=== PATIENT | female | born 1955 | race Two or more races ===

== ENCOUNTER → 2020-03-06 11:06 | Outpatient (BNVA) | payer MEDICARE, MEDICAID, SELFPAY | PROVIDERS: Visit Provider Student in an Organized Health Care Education/Training Program | DX: M54.41 Lumbago with sciatica, right side (principal); M54.42 Lumbago with sciatica, left side; G89.29 Other chronic pain; Z79.891 Long term (current) use of opiate analgesic; Z79.899 Other long term (current) drug therapy | CPT/HCPCS: 99212 ==

== ENCOUNTER 2020-05-23 10:04 | Outpatient (REF) | payer MEDICARE, MEDICAID, SELFPAY ==
--- NOTE | ~2020-05-23 | MM_ITS ---
EXAMINATION: MM SCREENING DIGITAL BREAST TOMOSYNTHESIS, BILATERAL CLINICAL INFORMATION: Screening. Asymptomatic. The lifetime risk of breast cancer based on the Tyrer-Cuzick Model is 5%. COMPARISON: Mammography: 06/28/2018, 04/19/2017, 04/06/2017, 03/09/2016 TECHNIQUE: Digital breast tomosynthesis is performed in both the craniocaudal and mediolateral oblique views along with computer-aided detection (CAD). Synthesized 2D images are generated from the tomosynthesis. FINDINGS: There are scattered areas of fibroglandular density (ACR BI-RADS breast composition Category b). Parenchymal pattern is similar to prior studies. There is stable nodular asymmetric density anterior medial left breast limited to the CC view, similar to prior exams. Neither breast shows developing density or interval mass or architectural abnormality. Again, there are scattered bilateral round and rim and vascular calcifications. The axilla and skin contours are unremarkable. MM/MM tomosynthesis screening BI IMPRESSION: No significant changes from prior studies. ASSESSMENT: BI-RADS 2: Benign RECOMMENDATION: Routine annual mammography screening. This patient's information was entered into a reminder system with a target due date for their next mammogram.
== END 2020-05-23 10:05 | disposition home or self-care (01) ==
LOC: HO.MAMMO 10:04
PROVIDERS: PCP Internal Medicine Geriatric Medicine; Visit Provider Internal Medicine Geriatric Medicine
DX: Z12.31 Encounter for screening mammogram for malignant neoplasm of breast (principal)
CPT/HCPCS: 77063; 77067

== ENCOUNTER → 2021-03-03 12:21 | Outpatient (BNVA) | payer MEDICARE, MEDICAID, SELFPAY | PROVIDERS: PCP Internal Medicine Geriatric Medicine; Visit Provider Nurse Practitioner Family | DX: M54.42 Lumbago with sciatica, left side (principal); M54.41 Lumbago with sciatica, right side; M54.2 Cervicalgia; G89.29 Other chronic pain; R20.0 Anesthesia of skin | CPT/HCPCS: 99212 ==

== ENCOUNTER 2021-06-04 08:42 | Outpatient (REF) | payer MEDICARE, MEDICAID, SELFPAY ==
--- NOTE | 2021-06-04 08:46 | EMG_ITS ---
This is a 66-year-old woman with pain in the left shoulder going into the left hand. She has a long history of diabetes and peripheral vascular disease, had right lower extremity amputation. IMPRESSION: Neuropathy, rule out cervical radiculopathy. 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 EMG of the left upper extremity shows mild distal neuropathic changes. No definite evidence of cervical radiculopathy. MD CONI Powell/MERCEDEZ / [id number]
== END 2021-06-04 08:43 | disposition home or self-care (01) ==
LOC: HO.NEURO 08:42
PROVIDERS: PCP Internal Medicine Geriatric Medicine; Visit Provider Nurse Practitioner Family
DX: R20.0 Anesthesia of skin (principal)
CPT/HCPCS: 95885; 95910

== ENCOUNTER → 2021-10-31 09:59 | Outpatient (BNVA) | payer MEDICARE, MEDICAID, SELFPAY | PROVIDERS: PCP Internal Medicine Geriatric Medicine; Visit Provider Nurse Practitioner Family | DX: Z79.899 Other long term (current) drug therapy (principal); M54.42 Lumbago with sciatica, left side; M54.41 Lumbago with sciatica, right side; G89.29 Other chronic pain; M54.2 Cervicalgia; R20.0 Anesthesia of skin | CPT/HCPCS: Q3014 ==

== ENCOUNTER 2022-06-10 09:17 | Outpatient (REF) | payer OTHER, SELFPAY ==
[2022-06-10 09:28] LABS: MANUAL DIFF FLAG NO
[2022-06-10 09:43] LABS: Basophils Percent Auto 0.6 % (0-2); Eosinophils Absolute Auto 0.3 X10*3/uL (0.0-0.4); Eosinophils Percent Auto 4.6 % (0-4); Hematocrit 44.2 % (37.0-47.0); Imm Gran Abs Auto 0.01 X10*3/uL (0.00-0.03); Imm Gran Pct Auto 0.2 % (0.0-0.4); Lymphocytes Absolute Auto 2.2 X10*3/uL (1.2-4.9); Lymphocytes Percent Auto 34.2 % (20-40); Mean Corpuscular HGB Conc 31.7 g/dl (31.0-35.0); Mean Corpuscular Hemoglobin 29.4 pg (27.0-33.0); Mean Corpuscular Volume 92.9 fL (80.0-98.0); Mean Platelet Volume 11.1 fL (9.4-12.3); Monocytes Absolute Auto 0.5 X10*3/uL (0.1-1.2); Monocytes Percent Auto 8.3 % (2-11); Neutrophils Absolute Auto 3.4 x10*3/uL (2.0-8.3); Neutrophils Percent Auto 52.1 % (45-73); Platelet Count 221 X10*3/uL (160-400); Red Blood Count 4.76 X10*6/uL (4.20-5.50); Red Cell Distribution Width 12.8 % (11.0-16.0); White Blood Count 6.5 X10*3/uL (4.8-10.8)
[2022-06-10 10:05] LABS: Alanine Aminotransferase 56 U/L (0-31); Aspartate Amino Transferase 39 U/L (5-31); Estimated Glomerular Filt Rate 38
== END 2022-06-10 09:18 | disposition home or self-care (01) ==
LOC: HO.LAB 09:17
PROVIDERS: PCP Internal Medicine Geriatric Medicine; Visit Provider Nurse Practitioner Family
DX: Z79.899 Other long term (current) drug therapy (principal)
CPT/HCPCS: 36415; 82565; 84450; 84460; 85025

== ENCOUNTER → 2022-06-11 09:47 | Outpatient (BNVA) | payer OTHER, SELFPAY | PROVIDERS: PCP Internal Medicine Geriatric Medicine; Visit Provider Nurse Practitioner Family | DX: M54.42 Lumbago with sciatica, left side (principal); M54.41 Lumbago with sciatica, right side; M47.812 Spondylosis without myelopathy or radiculopathy, cervical region; R20.0 Anesthesia of skin; G89.29 Other chronic pain | CPT/HCPCS: 99212 ==

== ENCOUNTER 2022-12-15 09:13 | Outpatient (AMB) | payer OTHER, SELFPAY ==
--- NOTE | 2022-12-15 09:18 | MHC.OFFVIS ---
Intake Vital Signs 12/15/22 09:28 Height 5 ft 1 in Weight 137 lb BMI 25.9 BMI Reason not done Patient refused/unable BP 146/72 H Blood Pressure Location Lt brachial Position Sitting Pulse 94 Pulse Source Pulse Oximeter Temp 97.3 F Temp Source Skin Pulse Oximetry (%) 96 Oxygen Delivery Method Room Air Comment refusing to stand on scale, per pt weight measured yesterday Intake Visit Reasons: osteoarthritis Intake Note: Here for OA follow up Interventional Radiology Tech Required: Yes Interventional Radiology Tech Language: Inspector Plumbing Name: Alex Information Interpreted: clinical only Accompanied by: Other Relationship Allergies Penicillins [PCN] Allergy (Severe, Verified 12/15/22 09:18) ANGIOEDEMA levofloxacin Allergy (Intermediate, Verified 12/15/22 09:18) Rash Medication List - Last Reconciled 12/15/22 by Andrew Guido MD acetaminophen ER (Tylenol Arthritis Pain) 650 mg PO Q12H aspirin 81 mg PO DAILY atenolol 100 mg PO BID calcifediol ER (Rayaldee) 30 mcg PO DAILY clonazepam 0.25 mg PO BEDTIME docusate sodium (Colace) 100 mg PO DAILY dulaglutide (Trulicity) mg subcut QWEEK ezetimibe (Zetia) 10 mg PO DAILY fluoxetine 20 mg PO DAILY gabapentin 600 mg PO TID insulin degludec (Tresiba FlexTouch U-100 insulin) 20 units subcut DAILY lisinopril 40 mg PO DAILY olanzapine 5 mg PO DAILY omeprazole 20 mg PO DAILY pioglitazone 45 mg PO DAILY quetiapine 25 - 50 mg PO BEDTIME PRN rosuvastatin 40 mg PO DAILY tramadol 50 mg PO BID PRN trazodone 100 mg PO DAILY HPI HPI Comments History of Present Illness Details The patient presents today with her INSPECTOR EXPERIMENTAL ASSEMBLY who helps translate. The patient has been treated here for osteoarthritis in the lumbar and cervical spine regions. She takes acetaminophen, gabapentin 600 t.i.d., tramadol 50 b.i.d., and trazodone at night. For anxiety and depression she is also on fluoxetine, clonazepam, and olanzapine. She denies any sedation with these medications. She thinks the tramadol is helpful. She recently had a fall and injured the stump of the right lower extremity. The aide says there was a scratch there but they are watching it and treating it with topical agents. She did see diabetic doctor when she had the original injury. She also gets pain in her hands, shoulders, and lateral hips. [facility] Medical History (Updated 12/15/22 @ 09:56 by Andrew Guido MD) Amputation of right lower extremity Anxiety Chronic peripheral neuropathic pain Depression Diabetes HTN (hypertension) Surgical History H/O: hysterectomy Family History Father Diabetes HTN (hypertension) Mother Diabetes HTN (hypertension) Brother Mouth cancer Sister Stomach cancer Social History Alcohol intake: never Patient Tobacco Use Status: Never used Tobacco Review of Systems Const Details: Weight and appetite tend to fluctuate. Negative for, fever, chills, malaise and fatigue Eyes Details: Occasional headache. Negative for vision change, dry eyes and dizziness Skin/Breast Details: Negative for itching, rash, hives, Raynaud's symptoms, sun sensitivity, and skin cancer Psych Details: Anxiety and depression stable with current medications Endo Details: Negative for polyuria and polydypsia Florin/Lymph Details: Negative for excessive bruising or bleeding. Physical Exam Vital Signs: Last Vital Signs Temp 97.3 F 12/15/22 09:28 Pulse 94 12/15/22 09:28 BP 146/72 H 12/15/22 09:28 Pulse Ox 96 12/15/22 09:28 Oxygen Delivery Method Room Air 12/15/22 09:28 BMI result Body Mass Index 25.9 APPEARANCE: Patient in no acute distress EYES no redness, pupils equal and reactive to light, eyelids normal. No temporal artery tenderness, redness or swelling NECK: No thyromegaly or masses, no adenopathy, trachea midline. HEART: Regulrar rhythm, S1-S2 heard, no murmurs, rubs or gallops. LUNG: Clear to percussion and auscultation ABD: Normal bowel sounds, no organomegaly, masses or tenderness. EXTREMITIES: Right BKA not examined. Left: No edema, no calf tenderness, normal peripheral pulses. JOINT EXAM: Cervical Spine:? Able to perform flexion and extension with slight pain.? Mild pain with more than 45 degrees of left or right rotation.? Tenderness to palpation of the cervical spinal muscles.? Slight tenderness to palpation over the cervical spine. Thoracic Spine:? No scoliosis.? No tenderness on palpation. Lumbar Spine: Alignment normal.? Full range of motion without pain, no tenderness. Chest Wall: No tenderness, swelling, increased warmth or erythema. Hands:? Normal pain-free range of motion with mild bony enlargement and tenderness at the thumb IP joints and the PIP joints, more prominently noted on the right hand. The MCPs have no swelling. There is no flexor tendon triggering or swelling. No thenar atrophy or sensory loss. Wrists: Normal pain-free range of motion without tenderness, swelling, increased warmth or erythema. Elbows: Normal pain-free range of motion without tenderness, swelling, increased warmth or erythema. Shoulders:?? Full range of motion with mild pain at the extremes. This is noted mostly over the cervical spine region and the trapezius muscles. There is mild anterior and trapezial muscle tenderness. No swelling, weakness increased warmth or erythema. Hips:? Full range of motion without pain. Hip bursa:? No tenderness. Knees: LEFT:? Normal pain-free range of motion without tenderness, swelling, increased warmth or erythema.? There is no effusion or crepitation. Right: The stump is in the protective stock. Skin was not examined. ?? ? Assessment & Plan Assessment & Plan (1) Encounter for medication monitoring: Comment: Tramadol pain contract updated 06/11/2022 Code(s): Z51.81 - Encounter for therapeutic drug level monitoring (2) Amputation of right lower extremity: Code(s): S88.911A - Complete traumatic amputation of right lower leg, level unspecified, initial encounter (3) Spondylosis of cervical spine: Code(s): M47.812 - Spondylosis without myelopathy or radiculopathy, cervical region Plan Patient continues with pains in the neck and lower back region. She seems also have some many tender points consistent with some underlying fibromyalgia. Apparently the current medications are helpful but not sedating so I think that could be continued. Tramadol dose is relatively low and I think might be manageable by her PCP if he decides to take that over that would be fine with us. Otherwise we would see her back in about 6 months. A new prescription for the tramadol refill was sent in. Medications: Refilled tramadol 50 mg PO BID PRN 60 tabs 5RF pain M47.812 - Spondylosis without myelopathy or radiculopathy, cervical region, S88.911A - Complete traumatic amputation of right lower leg, level unspecified, initial encounter Coding Level of Care Code Est Pt Level 3 (40413) Diagnoses Encounter for medication monitoring Z51.81 Amputation of right lower extremity S88.911A Spondylosis of cervical spine M47.812
[2022-12-15 09:28] VITALS: BP 146/72; PULSE 94; TEMP 36.3; O2SAT 96; BMI 25.9
== END 2022-12-15 10:08 | disposition home or self-care (01) ==
PROVIDERS: PCP Internal Medicine Geriatric Medicine; Visit Provider Internal Medicine Rheumatology
DX: Z51.81 Encounter for therapeutic drug level monitoring (principal); S88.911A Complete traumatic amputation of right lower leg, level unspecified, initial encounter; M47.812 Spondylosis without myelopathy or radiculopathy, cervical region
CPT/HCPCS: 99213

== ENCOUNTER → 2022-12-15 09:13 | Outpatient (BNVA) | payer OTHER, SELFPAY | PROVIDERS: PCP Internal Medicine Geriatric Medicine; Visit Provider Internal Medicine Rheumatology | DX: M47.812 Spondylosis without myelopathy or radiculopathy, cervical region (principal); S88.911A Complete traumatic amputation of right lower leg, level unspecified, initial encounter | CPT/HCPCS: 99212 ==

== ENCOUNTER 2023-01-15 12:40 | Outpatient (REF) | payer OTHER, SELFPAY | END 2023-01-15 12:41 | disposition home or self-care (01) | LOC: HO.MAMMO 12:40 | PROVIDERS: PCP Internal Medicine Geriatric Medicine; Visit Provider Internal Medicine Geriatric Medicine | DX: Z13.89 Encounter for screening for other disorder (principal) ==

== ENCOUNTER 2023-02-16 09:58 | Outpatient (REF) | payer OTHER, SELFPAY | END 2023-02-16 09:59 | disposition home or self-care (01) | LOC: HO.MAMMO 09:58 | PROVIDERS: PCP Internal Medicine Geriatric Medicine; Visit Provider Internal Medicine Geriatric Medicine | DX: Z12.31 Encounter for screening mammogram for malignant neoplasm of breast (principal) | CPT/HCPCS: 77063; 77067 ==

== ENCOUNTER → 2023-02-16 11:45 | Outpatient (BNV) | payer OTHER, SELFPAY | PROVIDERS: PCP Internal Medicine Geriatric Medicine; Visit Provider Radiology Diagnostic Radiology | DX: Z12.31 Encounter for screening mammogram for malignant neoplasm of breast (principal) | CPT/HCPCS: 77063; 77067 ==

== ENCOUNTER 2023-06-14 12:45 | Outpatient (AMB) | payer OTHER, SELFPAY ==
--- NOTE | 2023-06-14 12:48 | A.OFFVIS_ITS ---
Intake Vital Signs 06/14/23 12:59 Height 5 ft 1 in Weight 139 lb 15.896 oz BMI 26.4 BP 128/62 Blood Pressure Location Rt brachial Position Sitting Pulse 103 H Pulse Source Pulse Oximeter Pulse Oximetry (%) 98 Oxygen Delivery Method Room Air Intake Visit Reasons: June 2023-oa/tramadol with eyeglass lens cutter Intake Note: Patient last seen 12/15/[address] Guido, presents today for follow up. Reports left leg sore. Concrete Precast Moulder Required: Yes Concrete Precast Moulder Language: Asthma Educator Name: Kye [id number] Information Interpreted: clinical only Accompanied by: Self / Same As Patient Allergies Penicillins [PCN] Allergy (Severe, Verified 06/14/23 12:49) ANGIOEDEMA levofloxacin Allergy (Intermediate, Verified 06/14/23 12:49) Rash HPI HPI Comments History of Present Illness Details The patient presents today for follow-up of osteoarthritis in the lumbar and cervical spine regions. She takes acetaminophen, gabapentin 600 t.i.d., tramadol 50 b.i.d., and trazodone at night. For anxiety and depression she is also on fluoxetine, clonazepam, and olanzapine. She denies any sedation with these medications. She thinks the tramadol is helpful. She also gets pain in her hands, shoulders, and lateral hips. She is consulting with vascular due lower extremity swelling. She says that at last visit, she was told that since the PCP prescribes her tramadol and gabapentin, she did not need to comer here so she is not sure why she was called to come in for an appointment. [facility] Medical History (Updated 12/15/22 @ 09:56 by Andrew Guido MD) Chronic peripheral neuropathic pain Amputation of right lower extremity Anxiety Depression HTN (hypertension) Diabetes Surgical History H/O: hysterectomy Family History Father Diabetes HTN (hypertension) Mother Diabetes HTN (hypertension) Brother Mouth cancer Sister Stomach cancer Social History Alcohol intake: never Patient Tobacco Use Status: Never used Tobacco Review of Systems Const All systems reviewed & are unremarkable except as noted in HPI and below Physical Exam Vital Signs: Last Vital Signs Pulse 103 H 06/14/23 12:59 BP 128/62 06/14/23 12:59 Pulse Ox 98 06/14/23 12:59 Oxygen Delivery Method Room Air 06/14/23 12:59 BMI result Body Mass Index 26.4 APPEARANCE: Patient in no acute distress EYES no redness, pupils equal and reactive to light, eyelids normal. No temporal artery tenderness, redness or swelling NECK: No thyromegaly or masses, no adenopathy, trachea midline. HEART: Regular rhythm, S1-S2 heard, no murmurs, rubs or gallops. LUNG: Clear to percussion and auscultation ABD: Normal bowel sounds, no organomegaly, masses or tenderness. EXTREMITIES: Right BKA not examined. Left: No edema, no calf tenderness, normal peripheral pulses. JOINT EXAM: Cervical Spine:? Able to perform flexion and extension with slight pain.? Mild pain with more than 45 degrees of left or right rotation.? Tenderness to pal pation of the cervical spinal muscles.? Slight tenderness to palpation over the cervical spine. Thoracic Spine:? No scoliosis.? No tenderness on palpation. Lumbar Spine: Alignment normal.? Full range of motion without pain, no tenderness. Chest Wall: No tenderness, swelling, increased warmth or erythema. Hands:? Normal pain-free range of motion with mild bony enlargement and tenderness at the thumb IP joints and the PIP joints, more prominently noted on the right hand. The MCPs have no swelling. There is no flexor tendon triggering or swelling. No thenar atrophy or sensory loss. Wrists: Normal pain-free range of motion without tenderness, swelling, increased warmth or erythema. Elbows: Normal pain-free range of motion without tenderness, swelling, increased warmth or erythema. Shoulders:?? Full range of motion with mild pain at the extremes. This is noted mostly over the cervical spine region and the trapezius muscles. There is mild anterior and trapezial muscle tenderness. No swelling, weakness increased warmth or erythema. Hips:? Full range of motion without pain. Hip bursa:? No tenderness. Knees: LEFT:? Normal pain-free range of motion without tenderness, swelling, increased warmth or erythema.? There is no effusion or crepitation. Right: The stump is in the protective stock. Skin was not examined. ?? ? Assessment & Plan Assessment & Plan (1) Encounter for medication monitoring: Comment: Tramadol pain contract updated 06/11/2022 Code(s): Z51.81 - Encounter for therapeutic drug level monitoring (2) Amputation of right lower extremity: Code(s): S88.911A - Complete traumatic amputation of right lower leg, level unspecified, initial encounter (3) Spondylosis of cervical spine: Code(s): M47.812 - Spondylosis without myelopathy or radiculopathy, cervical region Plan Patient continues with pains in the neck and lower back region. She seems also have some many tender points consistent with some underlying fibromyalgia. Apparently the current medications are helpful but not sedating so I think that could be continued. She will continue to follow up with PCP for the Tramadol and Gabapentin. Coding Level of Care Code Est Pt Level 2 (35750) Diagnoses Encounter for medication monitoring Z51.81 Amputation of right lower extremity S88.911A Spondylosis of cervical spine M47.812
[2023-06-14 12:59] VITALS: BP 128/62; PULSE 103; O2SAT 98; BMI 26.4
== END 2023-06-14 13:21 | disposition home or self-care (01) ==
PROVIDERS: PCP Internal Medicine Geriatric Medicine; Visit Provider Nurse Practitioner Family
DX: Z51.81 Encounter for therapeutic drug level monitoring (principal); S88.911A Complete traumatic amputation of right lower leg, level unspecified, initial encounter; M47.812 Spondylosis without myelopathy or radiculopathy, cervical region
CPT/HCPCS: 99212

== ENCOUNTER → 2023-06-14 12:45 | Outpatient (BNVA) | payer OTHER, SELFPAY | PROVIDERS: PCP Internal Medicine Geriatric Medicine; Visit Provider Nurse Practitioner Family | DX: Z51.81 Encounter for therapeutic drug level monitoring (principal); F11.20 Opioid dependence, uncomplicated; M47.812 Spondylosis without myelopathy or radiculopathy, cervical region; S88.911D Complete traumatic amputation of right lower leg, level unspecified, subsequent encounter | CPT/HCPCS: 99212 ==

== ENCOUNTER 2024-02-24 08:53 | Outpatient (REF) | payer OTHER, SELFPAY ==
--- NOTE | ~2024-02-24 | MM_ITS ---
EXAMINATION: MM SCREENING DIGITAL BREAST TOMOSYNTHESIS, BILATERAL CLINICAL INFORMATION: Screening. Asymptomatic. COMPARISON: Mammography: Comparison is made with available priors TECHNIQUE: Digital breast mammography with tomosynthesis is performed in both the craniocaudal and mediolateral oblique views along with computer-aided detection (CAD). FINDINGS: The breasts are heterogeneously dense, which may obscure small masses (ACR BI-RADS breast composition Category c). There are no significant masses, abnormal calcifications, or other abnormalities. MM/MM tomosynthesis screening BI IMPRESSION: No mammographic evidence of malignancy. ASSESSMENT: BI-RADS BI-RADS 1 - Negative RECOMMENDATION: Routine annual mammography screening. 1 year F/U This examination should not preclude the clinical evaluation of a suspicious palpable abnormality. This patient's information was entered into a reminder system with a target due date for their next mammogram. Electronically signed by: Lesly Felix DO 03/03/2024 09:14 AM DANIEL
== END 2024-02-24 08:54 | disposition home or self-care (01) ==
LOC: HO.MAMMO 08:53
PROVIDERS: PCP Internal Medicine Geriatric Medicine; Visit Provider Internal Medicine Geriatric Medicine
DX: Z12.31 Encounter for screening mammogram for malignant neoplasm of breast (principal)
CPT/HCPCS: 77063; 77067

== ENCOUNTER → 2024-02-24 09:00 | Outpatient (BNV) | payer OTHER, SELFPAY | PROVIDERS: PCP Internal Medicine Geriatric Medicine; Visit Provider Internal Medicine | DX: Z12.31 Encounter for screening mammogram for malignant neoplasm of breast (principal) | CPT/HCPCS: 77063; 77067 ==

== ENCOUNTER 2025-04-10 13:53 | Outpatient (REF) | payer OTHER, SELFPAY ==
--- NOTE | ~2025-04-10 | MM_ITS ---
EXAMINATION: MM SCREENING DIGITAL BREAST TOMOSYNTHESIS, BILATERAL CLINICAL INFORMATION: Screening. Asymptomatic. COMPARISON: Mammography: Comparison is made with available priors TECHNIQUE: Digital breast mammography with tomosynthesis is performed in both the craniocaudal and mediolateral oblique views along with computer-aided detection (CAD). FINDINGS: The breasts are heterogeneously dense, which may obscure small masses. There are no significant masses, abnormal calcifications, or other abnormalities. MM/MM tomosynthesis screening BI IMPRESSION: No mammographic evidence of malignancy. ASSESSMENT: BI-RADS Category 1: Negative RECOMMENDATION: Routine annual mammography screening. 1 year F/U This examination should not preclude the clinical evaluation of a suspicious palpable abnormality. This patient's information was entered into a reminder system with a target due date for their next mammogram. Electronically signed by: Lesly Felix DO 04/10/2025 04:38 PM [facility]
--- OUTSIDE RECORDS SUMMARY | 2025-04-10 17:41 | XMS_ITS | Encounter Summary ---
Author Organization [employer] Address [address] [place] [address] Care Team Providers Care Litigation Attorney Name Role Phone Name, Christopher CARRASCO Primary Care Provider [phone] Encounter Details Date Type Department Care Team (Late st Contact Info) Description 03/08/2023 Abstract [facility] MEDICINE [address] [place], [place] [phone] Name, MD Christopher [address] [place], [place] [phone] Social History Tobacco Use Types Packs/Day Years Used Date Smoking Tobacco: Never Smokeless Tobacco: Never Alcohol Use Standard Drinks/Week Comments Never 0 (1 standard drink = 0.6 oz pur e alcohol) Housing Stability Answer Date Recorded What is your housing situation today? I have deb cardona 01/27/[address] you li ve. Do you have problems with any of the following? None of the above 01/27/2023 Food Insecurity Answer Date Recorded Within the past 12 months, y ou worried that your food would run out before you got money to buy more: Never True 01/27/2023 Within the past 12 months,th e food you bought just didn't last and you didn't have enough money to get more: Never True Transportation Answer Date Recorded In the past 12 months, has l ack of transportation kept you from medical appts, meetings, work or from getting things needed for daily living? No 01/27/2023 Utilities Answer Date Recorded In the past 12 months, has t he electric, gas, oil or water company threatened to shut off services in your home? No 01/27/2023 Depression Answer Date Recorded Patient Health Questionnaire-2 Score 0 06/08/2022 Comments Unknown Sex and Gender Information Value Date Recorded Sex Assigned at Female 02/09/2022 10:27 AM EDT Legal Sex Female 10:27 AM EDT Gender Identity Female 02/09/2022 10:27 AM EDT Sexual Orientation Straight 02/09/2022 10 :27 AM EDT documented as of this encounter Plan of Treatment Upcoming Encounters Date Type Department Care Team (Late st Contact Info) Description 2025 11:00 AM EST Office Visit [facility] [address] [place] [address] Name, MD Christopher [address] [place] [address] documented as of this encounter Procedures Procedure Name Priority Date/Time Associated Diagnosis Comments MAMMOGRAPHY Routine 02/16/2023 documented in this encounter Results * Mammography (02/16/2023) Mammogram Negative Comment:Bi-Rads 1 Negative Anatomical Region Laterality Modality Other Christopher Theodore MD HEALTH MAINTENANCE Final Result documented in this encounter Visit Diagnoses Not on filedocumented in this encounter Care Teams Litigation Attorney Relationship Specialty Start Date End Date Name, MD Christopher [address] [place] [address] PCP - General Family Medicine 11/20/16 documented as of this encounter
--- OUTSIDE RECORDS SUMMARY | 2025-04-10 17:41 | XMS_ITS | Encounter Summary ---
Author Organization [employer] Address [address] [place] [address] Care Team Providers Care Belt Operator Name Role Phone NameChristopher MD Primary Care Provider [phone] Encounter Details Date Type Department Care Team (Late Contact Info) Description 11/11/2022 Orders Only [facility] MEDICINE [address] [place] [phone] Christopher Theodore MD [address] [place] [address] [phone] Social History Tobacco Use Types Packs/Day Years Used Date Smoking Tobacco: Never Smokeless Tobacco: Never Alcohol Use Standard Drinks/Week Comments Never 0 (1 standard drink = 0.6 oz pur e alcohol) Depression Answer Date Recorded Patient Health Questionnaire-2 [...] 11:00 AM EST Office Visit [facility] MED[facility]INE [address] [place] [address] [phone] Christopher Theodore MD [address] [place] [address] [phone] documented as of this encounter Visit Diagnoses Not on filedocumented in this encounter Care Teams Belt Operator Relationship Specialty Start Date End Date NameChristopher MD [address] [place] [address] PCP - General Family Medicine 11/20/16 documented as of this encounter
--- OUTSIDE RECORDS SUMMARY | 2025-04-10 17:41 | XMS_ITS | Clinical Summary ---
Author Organization [facility] Address [address] [address] Phone Care Team Providers [employer] Name Role Phone Priscila Moraes MD Primary Care Provider [phone] Allergies Active Allergy Reactions Criticality Noted Date Comments Amoxicillin 06/25/2020 Levofloxacin Other (see comments) 02/07/2019 Penicillins Rash Low 09/22/2018 Medications aspirin (ST CHRISTIANO) 81 MG EC tablet Take 1 tablet by mouth 1 (one) time each day Active atenolol (TENORMIN) 100 MG tablet Comments: Filled Date: Mar 14 2018 12:00AM Patient Notes: TOME DOS TABLETAS POR V?A ORAL TODOS LOS D? Duration: 90 03/11/2018 Active Calcifediol ER (Rayaldee) 30 MCG capsule controlled-rele ase Comments: Filled Date: Nov 10 2019 5:09PM Patient Notes: TAKE 1 APPLY BY MOUTH ONCE DAILY Duration: 11/10/2019 Active ezetimibe (ZETIA) 10 MG tablet Take 1 tablet by mouth 1 (one) time each day Active gabapentin (NEURONTIN) 600 MG tablet Take 1 tablet by mouth 3 (three) times a day Active insulin degludec (Tresiba FlexTouch) 100 UNIT/ML injection Inject 30 Units under the skin every night Active insulin lispro (HumaLOG) 100 UNIT/ML injection Inject 5 Units under the skin 3 (three) times a day 11/07/2019 Active omeprazole (PriLOSEC) [address] capsule Take 1 capsule by mouth 1 (one) time each day Active pioglitazone (ACTOS) 45 MG tablet Take 1 tablet by mouth 1 (one) time each day Active rosuvastatin (CRESTOR) 40 MG tablet Take 1 tablet by mouth 1 (one) time each day Active traMADol (ULTRAM) 50 MG tablet Take 1 tablet by mouth 4 (four) times a day Active FLUoxetine (PROzac) 20 MG capsule Comments: Filled Date: Mar 18 2018 12:00AM Patient Notes: TOME HOMERO C?PSULAS POR V?A ORAL TODOS LOS D? EN LA MA?LISSETH Duration: 30 01/25/2018 Active FREESTYLE LITE test strip 12/30/2020 Active B-D ULTRAFINE III SHORT PEN 31G X 8 MM misc 01/31/2021 Act aubrey Lancets (freestyle) lancets 03/02/2021 Active traZODone (DESYREL) 50 MG tablet 03/10/2021 Active Trulicity 1.5 MG/0.5ML solution pen-injector 02/11/2021 Active Fe Heme Polypeptide-Fol ic Acid 12-1 MG tablet Take 1 tablet by mouth 1 (one) time each day 90 tablet 5 02/10/2022 Active lisinopril 40 MG tablet Take 1 tablet (40 mg total) by mouth 1 (one) time each day 90 tablet 5 08/12/2022 Active amLODIPine (NORVASC) 10 MG tablet Take 10 mg by mouth 1 (one) time each day Active Active Problems Problem Noted Date Diagnosed Date Chronic kidney disease, stage 2 (mild) Amputated below knee 06/25/2020 Chronic kidney disease stage 3 06/25/2020 Edema 06/25/2020 Hypertensive heart and renal disease with (congestive) heart failure 06/25/2020 Hypertensive heart disease without heart failure 06/25/2020 Iron deficiency anemia 06/25/2020 Peripheral vascular disease 06/25/2020 Renal disorder due to type 2 diabetes mellitus 0 06/25/2020 Hypercalcemia 02/07/2020 Overview (06/25/2020): Last Assessment & Plan: We will repeat comprehensive and intact PTH levels 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 I will check 1, 25 dihydroxy vitamin D but again she has been supplementing this medication. Secondary hyperparathyroidism 11/02/2019 Overview (06/25/2020): Last Assessment & Plan: She is following with the emt/paramedic serum calcium levels have been elevated but her intact PTH level improved. She is off cholecalciferol but continues on calcifediol. Vitamin D deficiency 11/02/2019 Overview (06/25/2020): Last Assessment & Plan: MND levels are now replete stop ergocalciferol. Will prescribe cholecalciferol 2000 units but the patient is on active vitamin D so it may not make much of a difference. Traumatic transtibiofibular amputation 0 Essential hypertension 09/22/2018 Overview (06/25/2020): Last Assessment & Plan: Controlled on lisinopril. No changes. Hyperlipidemia 09/22/2018 Overview (06/25/2020): Last Assessment & Plan: Controlled, LDL 44 mg/dL on Crestor and ezetimibe no changes. Type 2 diabetes mellitus 09/22/2018 Overview (06/25/2020): Last Assessment & Plan: Uncontrolled she still having too many hypoglycemic episodes. She resume Humalog after she told me she has stopped. She states that she is going to stop but does not want to come off pioglitazone. Makes no sense to me because mom explaining to her that she is having low glucose levels so she should stop some of these medications and she is not eating as much. I told her to stop the Humalog and if she continues to have lows she should stop the pioglitazone as well. She should continue Tresiba U1 100 and Trulicity for the time being and she is going to continue pioglitazone 15 mg but again if she continues to have lows after stopping the Humalog she should stop the pioglitazone. Hypertension 09/22/2018 Overview (09/23/2020): Last Assessment & Plan: Controlled. Continue current medications we will check urine microalbumin creatinine ratio. Hyperlipidemia 09/22/2018 Overview (09/23/2020): Last Assessment & Plan: Controlled. LDL 47 mg/dL continue rosuvastatin and ezetimibe. No changes. Type 2 diabetes mellitus 09/22/2018 Overview (09/23/2020): Last Assessment & Plan: Unfortunately she continues to have hypoglycemia. She stopped pioglitazone and still has hypoglycemia I asked her to stop Tresiba she is only taking 5 units but the fact that she still having hypoglycemia she should discontinue it. She does not want meter completely discontinue this medication for her medication list but I advised her to please not use it because she had a glucose level 33 mg/dL and I told her that this is from hypoglycemia dangerous she can have seizure and this could be fatal. She should continue Trulicity 1.5 mg weekly. We will give her a follow-up appointment in 4 months. Encounters Date Type Department Care Team Description 02/07/2025 1:45 PM EDT Office Visit [facility] [address] [phone] Dulce Hinkle ARNP Chronic kidney disease, stage 2 (mild) (Primary Dx); Hypertension; Secondary hyperparathyroidism (HCC); Vitamin D deficiency, not otherwise specified 01/10/2025 Orders Only [facility] [address] [phone] Dulce Hinkle ARNP Chronic kidney disease, stage 2 (mild); Hypertension; Secondary hyperparathyroidism (HCC) from Last 3 Months Immunizations Immunization Administration Dates Next Due H1N1 Inj 02/20/2016 Influenza Split High Dose Preservative Free IM 0 12/11/2014 Pneumococcal Polysaccharide 1974 Family History Medical History Relation Comments Diabetes Father Diabetes Mother Heart disease Sibling 1 sister Kidney disease Sibling 2 CKD Relation Status Comments Father Mother Sibling 1 Sibling 2 Social History Tobacco Use Types Packs/Day Years Used Date Smoking Tobacco: Never Smokeless Tobacco: Never Tobacco Cessation:Counseling Given: Not Answered Alcohol Use Standard Drinks/Week Comments No 0 (1 standard drink = 0.6 oz pur e alcohol) Comments Unknown Sex and Gender Information Value Date Recorded Sex Assigned at Not on file Legal Sex Female 4:41 PM EST Gender Identity Not on file Sexual Orientation Not on file Last Filed Vital Signs Vital Sign Reading Time Taken Comments Blood Pressure 160/80 02/07/2025 1:41 PM EDT Pulse 93 02/07/2025 1:21 PM EDT Temperature - - Respiratory Rate - - Oxygen Saturation 97% 08/09/2024 3:39 PM EDT Inhaled Oxygen Concentration - - Weight 60.8 kg (134 lb) 02/07/2025 1:21 PM EDT Height 157.5 cm (5' 2 ) 02/10/2022 2:57 PM EDT Body Mass Index 24.51 02/10/2022 2:57 PM EDT Plan of Treatment Upcoming Encounters Date Type Department Care Team (Late st Contact Info) Description 08/15/2025 1:30 PM EDT Office Visit [facility] [address] [phone] Dulce Hinkle ARNP [address] [phone] Health Maintenance Due Date Last Done Comments Breast Cancer Screening 1955 Colorectal Cancer Screening: Annual FOBT 2004 Colorectal Cancer Screening: Colonoscopy 2004 Colorectal Cancer Screening: Sigmoidoscopy 2004 Diabetes: Ophthalmology Exam 05/12/2020 Diabetes: Pedal Pulse Checked 05/12/2020 Diabetes: Sensory Foot Exam 05/12/2020 Diabetes: Visual Foot Exam 05/12/2020 Diabetes: Hemoglobin A1C 04/21/2024 024, 01/13/2024, 01/27/2023, Additional history exists Influenza Vaccine (#1) 2024 4, 01/17/2019, 01/28/2018, Additional history exists Pneumococcal Vaccine: 50+ Years (4 of 4 - PCV20 or PCV21) 07/08/2026 07/08/2021, 10/10/2015, 08/03/2014, Additional history exists Pneumococcal Vaccine: Peds (0 to 5 Years) and At-Risk Patients (6 to 49 Years) Discontinued 07/08/2021, 10/10/2015, 08/03/2014, Additional history exists Hepatitis B Vaccine Aged Out No longe r eligible based on patient's age to complete this topic Procedures Procedure Name Priority Date/Time Associated Diagnosis Comments PROTEIN / CREATININE RATIO, URINE Routine 01/31/2025 9:17 AM EDT Chronic kidney disease, stage 2 (mild) Hypertension Secondary hyperparathyroidism (HCC) URINE ALBUMIN / CREATININE RATIO Routine 01/31/2025 9:17 AM EDT Chronic kidney disease, stage 2 (mild) Hypertension Secondary hyperparathyroidism (HCC) CBC Routine 01/31/2025 9:17 AM EDT Chronic kidney disease, stage 2 (mild) Hypertension Secondary hyperparathyroidism (HCC) RENAL FUNCTION PANEL Routine 01/31/2025 9:17 AM EDT Chronic kidney disease, stage 2 (mild) Hypertension Secondary hyperparathyroidism (HCC) PTH, INTACT Routine 01/31/2025 9:17 AM EDT Chronic kidney disease, stage 2 (mild) Hypertension Secondary hyperparathyroidism (HCC) HEMOGLOBIN A1C Routine 01/27/2023 10:34 AM EDT Hypertensive heart disease with heart failure (HCC) Chronic kidney disease, stage 2 (mild) Amputated below knee <Right side> (HCC) from Last 3 Months or Most Recently Relevant to Health Maintenance Results * (ABNORMAL) Urine Protein / creatinine ratio (01/31/2025 9:17 AM EDT) Creatinine, Ur 58.0 Not Estab. mg/dL [facility] Protein, Ur 12.7 Not Estab. mg/dL [facility] Urine Protein/Creati nine Ratio 219(H) 0 - 200 mg/g creat [facility] Urine specimen (specimen) Urine specimen obtained by clean catch procedure / Unknown 01/31/2025 9:17 AM EDT 01/31/2025 [facility] LAB URINE ORDERABLES Final Result Performing Organization Address City/[facility]/ZIP Co de Phone Number [facility] [address] [place] [address] * (ABNORMAL) Urine Albumin / Creatinine Ratio (01/31/2025 9:17 AM EDT) Albumin, Urine 36.9 Not Estab. ug/mL [facility] Albumin/Creatin ine Ratio 64(H) 0 - 29 mg/g creat [facility] Comment: Normal: 0 - 29 Moderately increased: 30 - 300 Severely increased: >300 Urine specimen (specimen) Urine specimen obtained by clean catch procedure / Unknown 01/31/2025 9:17 AM EDT 01/31/2025 [facility] LAB URINE ORDERABLES Final Result Performing Organization Address City/[facility] Co de Phone Number [facility] [address] [place] [address] * (ABNORMAL) CBC (01/31/2025 9:17 AM EDT) WBC 5.3 3.4 - 10.8 x10E3/uL [facility] RBC 4.34 3.77 - 5.28 x10E6/uL [facility] Hemoglobin 14.4 11.1 - 15.9 g/dL [facility] Hematocrit 43.8 34.0 - 46.6 % [facility] MCV 101(H) 79 - 97 fL [facility] MCH 33.2(H) 26.6 - 33.0 pg [facility] MCHC 32.9 31.5 - 35.7 g/dL [facility] RDW 12.6 11.7 - 15.4 % [facility] Platelets 220 150 - 450 x10E3/uL [facility] Blood specimen (specimen) Venous blood / Unknown 01/31/2025 9:17 AM EDT 01/31/2025 [facility] LAB BLOOD ORDERABLES Final Result Performing Organization Address City/[facility]/ZIP Co de Phone Number [facility] [address] [place] [address] * (ABNORMAL) PTH, intact (01/31/2025 9:17 AM EDT) PTH 82(H) 15 - 65 pg/mL [facility] Blood specimen (specimen) Venous blood / Unknown 01/31/2025 9:17 AM EDT 01/31/2025 Dulce Hinkle [facility] LAB BLOOD ORDERABLES Final Result [facility] [address] [place] [address] * (ABNORMAL) Renal function panel (01/31/2025 9:17 AM EDT) Glucose 147(H) 70 - 99 mg/dL [facility] BUN 15 8 - 27 mg/dL [facility] Creatinine 0.99 0.57 - 1.00 mg/dL [facility] eGFR CKD-EPI CR 2020 62 >59 mL/min/1.7 3 [facility] BUN/Creatinine Ratio 15 12 - 28 [facility] Sodium 142 134 - 144 mmol/L [facility] Potassium 4.8 3.5 - 5.2 mmol/L [facility] Chloride 104 96 - 106 mmol/L [facility] Bicarbonate (CO2) 24 20 - 29 mmol/L [facility] Calcium 9.9 8.7 - 10.3 mg/dL [facility] Albumin 4.3 3.9 - 4.9 g/dL [facility] Phosphorus 3.7 3.0 - 4.3 mg/dL [facility] Blood specimen (specimen) Venous blood / Unknown 01/31/2025 9:17 AM EDT 01/31/2025 Dulce Hinkle [facility] LAB BLOOD ORDERABLES Final Result [facility] [address] [place] [phone] * (ABNORMAL) Hemoglobin A1c (01/27/2023 10:34 AM EDT) [facility] Signature Hemoglobin A1C 6.6(H) (4.0-5.6) % [facility] Comment: MONITORING: In known diabetic patients, hemoglobin A1c targets should be discussed with health care provider. DIAGNOSTIC USE: The [place] Diabetes Association (ADA) and the World Health Organization (WHO) recommend the use of HbA1c to diagnose diabetes using a threshold of 6.5%. Patients who have an HbA1c between 5.7% and 6.4% are considered at increased risk for developing diabetes in the future. CAUTION: Falsely low HbA1c results may be observed in patients with hemolytic anemia, homozygous forms of abnormal hemoglobin (e.g. SS, CC, SC), , recent blood loss or hemoglobin F greater than 7%. Fructosamine may be used as an alternate test in these cases. REFERENCE: ADA: Standards of Medical Care in Diabetes 2020, The Journal of Clinical and Applied Research and Education Volume 43, Supplement 1 Testing performed or reported by [facility], a Service of [facility], [address] [place] [id number] Yordy Matias MD, [facility]# [id number] Blood specimen (specimen) Venous blood / Unknown 01/27/2023 10:34 AM EDT 01/27/2023 10:38 AM EDT us Kendell Fair MD LAB BLOOD ORDERABLES Final Re sult [facility] from Last 3 Months or Most Recently Relevant to Health Maintenance Insurance [address] [place] [id number] [facility] MCR ([id number]) ANNA ARMENTA [id number] [place] [id number] [facility] ([id number]) ANNA ARMENTA [id number] Care Teams [employer] T[employer] Relationship Specialty Start Date End Date Priscila Moraes MD [address] [place] [id number] PCP - General 04/22/20
--- OUTSIDE RECORDS SUMMARY | 2025-04-10 17:41 | XMS_ITS | Clinical Summary ---
Author Organization [facility] Address [address] [facility] [address] [place] [id number] Phone Care Team Providers Care Lockstitch Binder Name Role Phone Name, Christopher CARRASCO Primary Care Provider [phone] Allergies Active Allergy Reactions Criticality Noted Date Comments Levofloxacin 02/07/2019 Penicillins 09/22/2018 Medications atenolol (TENORMIN) 100 MG tablet Take 200 mg by mouth daily. Active FLUoxetine (PROZAC) 20 MG capsule Take 20 mg by mouth daily. Active gabapentin (NEURONTIN) 600 MG tablet Take 600 mg by mouth 2 (two) times a day. Active omeprazole (PRILOSEC) 20 MG capsule Take 20 mg by mouth daily. Active calcifediol 30 mcg Cs24 Take 30 mcg by mouth daily. Active aspirin 81 MG EC tablet Take 81 mg by mouth daily. Active traZODone (DESYREL) 100 MG tablet TOME CYNTHIA TABLETA TODOS LOS D AL ACOSTARSE 07/11/19 22 Active lisinopril (PRINIVIL,ZESTRIL ) 40 MG tablet Take 1 tablet by mouth daily. 11/14/19 23 Active amLODIPine (NORVASC) 10 MG tablet Take 10 mg by mouth daily. 01/02/20 23 Active traMADoL (ULTRAM) 50 mg tablet Take 50 mg by mouth 2 (two) times a day as needed. 02/03/20 23 Active QUEtiapine (SEROQUEL) 25 MG tablet Take 2 tablets by mouth nightly at bedtime as needed. 02/10/20 23 Active loratadine (CLARITIN) 10 mg tablet Take 10 mg by mouth 2 (two) times a day. 05/21/19 24 Active Medication-Free TextIndications:T ype 2 diabetes mellitus with proliferative retinopathy of both eyes, with long-term current use of insulin Left custom diabetic inserts 3 each 09/20/19 24 Active BD INSULIN PEN NEEDLE UF SHORT 31 gauge x /16 NdleIndications:T ype 2 diabetes mellitus with proliferative retinopathy of both eyes, with long-term current use of insulin, macular edema presence unspecified, unspecified proliferative retinopathy type 1 each by Miscellaneous route 4 (four) times a day. 400 each 3 07/15/19 25 Active FREESTYLE LITE Strp stripsIndications :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, with long-term current use of insulin, macular edema presence unspecified, unspecified proliferative retinopathy type 1 each by Miscellaneous route 3 (three) times a day before meals. 300 strip 3 07/15/19 25 Active FREESTYLE 28 gauge lancetsIndication s: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, with long-term current use of insulin, macular edema presence unspecified, unspecified proliferative retinopathy type Inject 1 each under the skin 3 (three) times a day before meals. 300 each 3 07/15/19 25 Active HYDROmorphone (DILAUDID) 2 MG tablet Take 2 mg by mouth as needed for pain (specific location in comments). 03/28/20 24 Active mometasone (ELOCON) 0.1 % ointment Apply 1 Application topically daily. 01/23/20 25 Active rivaroxaban (XARELTO) 10 mg tablet Take 2.5 mg by mouth 2 (two) times a day. Active insulin degludec U-100 (TRESIBA FLEXTOUCH U-100) injection penIndications:Ty pe 2 diabetes mellitus with diabetic polyneuropathy, with long-term current use of insulin,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, with long-term current use of insulin, macular edema presence unspecified, unspecified proliferative retinopathy type Inject 5 Units under the skin daily. 15 mL 1 03/05/20 25 Active rosuvastatin (CRESTOR) 40 MG tabletIndications :Type 2 diabetes mellitus with diabetic polyneuropathy, with long-term current use of insulin,Hyperlipi demia LDL goal <50,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, with long-term current use of insulin, macular edema presence unspecified, unspecified proliferative retinopathy type TOME CYNTHIA TABLETA TOS SHAYAN PAGAN 90 tablet 1 03/05/20 Active ezetimibe (ZETIA) 10 mg tabletIndications :Type 2 diabetes mellitus with diabetic polyneuropathy, with long-term current use of insulin,Hyperlipi demia LDL goal <50,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, with long-term current use of insulin, macular edema presence unspecified, unspecified proliferative retinopathy type WENDY MARIE TABLETA JEMIMADOS SHAYAN PAGAN 90 tablet 1 03/05/20 25 Active dulaglutide (TRULICITY) 4.5 mg/0.5 mL subcutaneous injectionIndicati ons:Type 2 diabetes mellitus with diabetic polyneuropathy, with long-term current use of insulin,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, with long-term current use of insulin, macular edema presence unspecified, unspecified proliferative retinopathy type INYECTE 0.5 ML (4.5 MG TOTAL) UNDER THE SKIN EVERY 7 DAYS 6 mL 1 03/05/20 Active Active Problems Problem Noted Date Diagnosed Date Type 2 diabetes mellitus wit h diabetic polyneuropathy, with long-term current use of insulin 07/14/2024 Assessment & Plan (03/05/2025 10:36 AM EST): Hemoglobin A1c is 6.5% but I cannot say that this is falsely low. She does not seem to have anemia but she does have renal insufficiency and her GFR recently is good. So I will not make any changes to her regimen she should continue Trulicity. She states that she uses Tresiba on occasions not on a regular basis. She is not checking her glucose levels at lunchtime dinnertime or bedtime. I suggest that she do this at least 2 weeks prior to seeing me. She can check twice a day always a fasting is taking alternating between lunchtime, dinner and bedtime. She should return in 6 months. Assessment & Plan (11/08/2024 10:14 AM EDT): Age-appropriate control of diabetes hemoglobin A1c 7.1 considering her comorbidities. She should bring in the meter on the follow-up visit I am not making any changes to her regimen. I will see her sooner than the regular 6 months follow-up. Hypercalcemia 02/07/2020 Assessment & Plan (02/07/2020 9:09 AM EDT): We will repeat comprehensive and intact PTH levels 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 I will check 1, 25 dihydroxy vitamin D but again she has been supplementing this medication. Secondary hyperparathyroidism 11/02/2019 Assessment & Plan (03/20/2020 9:31 AM EST): She is following with the wet process technician serum calcium levels have been elevated but her intact PTH level improved. She is off cholecalciferol but continues on calcifediol. Assessment & Plan (02/07/2020 9:08 AM EDT): Elevated intact PTH in the past dactylitis from renal insufficiency and vitamin D deficiency. Vitamin D levels are now resolved and she is on active vitamin D Calcifediol. She now has elevated calcium levels and she developing tertiary hyperparathyroidism? We will check intact PTH. Assessment & Plan (12/05/2019 8:58 AM EDT): Secondary hyperparathyroidism is likely due to vitamin D deficiency I prescribed ergocalciferol and I think that the wet process technician probably gave her at the vitamin D. Assessment & Plan (11/02/2019 11:00 AM EDT): The patient has secondary hyperparathyroidism due to vitamin D deficiency intact PTH levels are 69 PG/mL prescribed ergocalciferol 50,000 units weekly. Vitamin D deficiency 11/02/2019 Assessment & Plan (02/07/2020 9:08 AM EDT): MND levels are now replete stop ergocalciferol. Will prescribe cholecalciferol 2000 units but the patient is on active vitamin D so it may not make much of a difference. Assessment & Plan (12/05/2019 8:57 AM EDT): Prescribe ergocalciferol 50,000 units in the last visit also was prescribed vitamin D by her wet process technician and I think it is calcitriol because she did not bring her medications with her so I do not know what she is actually taking so she is probably getting active vitamin D. Assessment & Plan (11/02/2019 10:59 AM EDT): The patient's vitamin D level is 15.3 ng/mL. I will prescribe ergocalciferol 50,000 units weekly for 3 months and then repeat the levels but she needs to be on maintenance therapy with cholecalciferol 2000 units after completing 3-month supply assuming the vitamin D levels are in the reference range then. 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 Hemoglobin A1c is 7.0%. Previously hemoglobin A1c 6.9% but this is considered adequate control considering her comorbidities and we do not want to aggressively tighten her glycemic control any further. I have renewed the Tresiba because she states she uses it at times and is not developing hypoglycemia but this was not the case in the past. She should continue Trulicity 4.5 mg weekly. She would benefit from continuous glucose monitor but we have tried many times to prescribe this. However for some reason when we try to get the DME to call her she never responds to the messages send this seems to be a language barrier or communication issues. At this point I will see her in 3 months time because lipid levels were elevated and this needs to be addressed. Assessment & Plan (07/14/2023 10:35 AM EDT): Controlled. Hemoglobin A1c 6.1% continue Trulicity 4.5 mg weekly. Assessment & Plan (04/14/2023 12:54 PM EST): Uncontrolled. Her hemoglobin A1c is 6.2% but at the expense of recurrent hypoglycemia. I advised her to stop the Tresiba. She should just continue this 3 to 4.5 mg weekly. In the past have asked her to stop Trulicity but she continues to use this medication even at low doses. She should not continue using this medication.The patient has current severe hypoglycemia. There is significant concern hypoglycemic seizures which can be potentially fatal. I reemphasized to the patient that the use of insulin is high risk therapy that requires intensive monitoring for toxic effects (hypoglycemia, metabolic decompensation) due to the narrow therapeutic index of the medication and other factors (such as age, acute renal insufficiency, variable appetite and use of steroids) therefore close monitoring of blood sugar with regular review is paramount in the safe use of this medication. She will follow in 3 months. Assessment & Plan (11/16/2022 11:39 AM EDT): Uncontrolled. Hemoglobin A1c 6.7%, but unfortunately too many low glucose levels. Advised to stop Tresiba. She should continue Trulicity 4.5 mg weekly. The patient has current severe hypoglycemia. There is significant concern hypoglycemic seizures which can be potentially fatal. I reemphasized to the patient that the use of insulin is high risk therapy that requires intensive monitoring for toxic effects (hypoglycemia, metabolic decompensation) due to the narrow therapeutic index of the medication and other factors (such as age, acute renal insufficiency, variable appetite and use of steroids) therefore close monitoring of blood sugar with regular review is paramount in the safe use of this medication. Assessment & Plan (05/18/2022 10:29 AM EST): Controlled. Hemoglobin A1c 6.7% continue current regimen Tresiba 10 units Trulicity 4.5 mg weekly. However it may be difficult to get Trulicity 4.5 mg weekly we may have to decrease the dose down to 1.5 mg or even switch to oral Ozempic if she is not able to get Trulicity at the current dose. She will follow in 6 months. Assessment & Plan (01/30/2022 10:02 AM EDT): Fair control. A1c is 7.1%. Continue Tresiba 10 units , will increase Trulicity 4.5 mg weekly. Follow up in 3 months. Assessment & Plan (10/08/2021 10:15 AM EDT): Uncontrolled. Hemoglobin A1c increased to 8.2%. I will add Tresiba 10 units. She will continue Trulicity 3 mg weekly. The patient does need to work on her stress levels. Will return for follow-up visit in 3 months repeat lab work prior to the follow- up visit. Assessment & Plan (07/08/2021 1:40 PM EDT): Hemoglobin A1c has increased to 6.9% she is off Tresiba and now is only on Trulicity 1.5 mg sometimes she gets very angry at her glucose levels, as sometimes she is woken up with her elevated glucose levels. I do not have her meter because she did not bring it. But I am going to increase the Trulicity to 3.0 mg weekly. She asked about Tresiba but I was reluctant to prescribe it because in the past she was becoming hypoglycemic. They I signed off prescriptions for right prosthesis. Also diabetic shoes. She will return in approximately 3 months. Assessment & Plan (12/30/2020 9:59 AM EDT): Controlled. Hemoglobin A1c 5.8%. Last hemoglobin and hematocrit levels were within the reference range. She does have renal insufficiency so we have to monitor glucose levels to make sure that her glycemic levels are within the reference range. Has occasional hypoglycemia. Assessment & Plan (09/10/2020 8:56 AM EDT): Unfortunately she continues to have hypoglycemia. She [...] her a follow-up appointment in 4 months. Assessment & Plan (07/08/2020 10:11 AM EDT): Last hemoglobin A1c 5.2% too many hypoglycemia stop pioglitazone continue Trulicity and Tresiba for now. Assessment & Plan (06/10/2020 9:29 AM EST): Uncontrolled she still having too many hypoglycemic [...] the Humalog she should stop the pioglitazone. Assessment & Plan (04/29/2020 10:31 AM EST): Uncontrolled. She is having too many hypoglycemia the hemoglobin A1c is 5.2% I am decreasing pioglitazone from 45-15 and advised her that if she continues to have low glucose levels to stop it altogether. She will continue Trulicity 1.5 mg weekly and Tresiba 5 units daily. Hypoglycemic unawareness states that she feels good. However I did tell her that I am concerned about the hypoglycemia. Assessment & Plan (03/20/2020 9:38 AM EST): She continues to have fasting hypoglycemia she is hypoglycemic unaware I asked her to decrease the Tresiba from 20 units to 10 units. However after a week of 10 units if she still having low glucose she should decrease it to 5 units. He should continue Trulicity and Actos. She is not using Humalog although it is in her prescription profile. Assessment & Plan (02/07/2020 9:08 AM EDT): Hemoglobin A1c 6.6% but she is not controlled because she is having hypoglycemia I asked him to decrease the Tresiba to 20 units and if she is continues to have hypoglycemia to decrease it further to 15 units she should continue all the diabetic medications the reason why she is having lows is because she is not eating. She has very high insulin resistance as she started to eat and she will have hyperglycemia she states she is not using the Humalog unless she eats. Hemoglobin A1c may be falsely low will check CBC. May be anemic due to renal insufficiency. Assessment & Plan (12/05/2019 8:56 AM EDT): Uncontrolled now she is having hypoglycemia in the morning so I have to decrease the Tresiba to 25 units nightly she will continue Actos she will continue Trulicity and Humalog 5 units 3 times daily. Unfortunately she was denied the freestyle josse but if she were to monitor her glucose 4 times a day we can submit this to the insurance company she will be approved. What I am asking her to do now is to monitor glucose levels twice a day before the next visit she should do this 2 weeks prior to the next visit always a fasting glucose and a second alternating between lunch, dinner, and bedtime. Her fasting glucose are more or less fine may be too many low/why I am decreasing the Tresiba but she may still have postprandial hyperglycemia so I need her to tell me what these glucose levels are and she needs to check them. Assessment & Plan (11/02/2019 10:56 AM EDT): Uncontrolled hemoglobin A1c 10.6%. She does not want to use the V-go 40 any longer and I do get concerned about this because she is not very compliant with insulin administration. She is very upset with [facility] states that she does not get the supplies and I have sent them to the pharmacy and the prescriptions are up-to-date. So now I sent the prescriptions to [facility]. She should do Tresiba 30 units in the morning, Humalog 5 units with every meal. I have increase Actos from 30 to 45 mg and she will continue Trulicity 1.5 mg weekly. She will return for follow-up in 4 weeks time. Assessment & Plan (09/21/2019 9:51 AM EDT): Uncontrolled. Her glycemic levels are elevated but she is no longer on the V-go 40. She has not used it for the last 2 to 3 weeks. She continues on Trulicity 1.5 mg weekly and Actos 30 mg at this point I am going to prescribe Tresiba 30. She she was on set doses of Humalog for breakfast she was using 2 units, 6 units for lunch and 4 units for dinner. She should continue this. Assessment & Plan (06/08/2019 10:14 AM EST): Uncontrolled. She is not due for repeat hemoglobin A1c her fasting glucose are elevated for the most part she has hypoglycemia when she does not eat. I will increase Actos to 30 mg daily she should continue Trulicity 1.5 and V-go 40. Assessment & Plan (05/09/2019 11:03 AM EST): Uncontrolled. Her A1c is 10.2%. She never got the Actos that I prescribed she is using the V-go 40 Atenol how accurately she is working this especially now that she does not have a meter to monitor her glucose levels I have again requested the CGM and send it to [facility]. I again requested Actos 15 mg and I sent it to [facility] as well. The patient is here with her healthcare attendant and I asked them if they could just stop by [facility] and see if they are able to get this medication. I will give her a follow-up appointment in 4 weeks time. Assessment & Plan (04/10/2019 11:19 AM EST): Uncontrolled. Her glucose averages 238 mg/dL we will add Actos 15 mg daily continue the V-go and continue Trulicity 1.5 mg weekly because she is not doing well we will titrate the Actos as required. I will give her a follow-up in 4 weeks time. Assessment & Plan (02/07/2019 10:47 AM EDT): Uncontrolled. Her last A1c was 8.4% but now she has a glucose level of 219 it looks like it has worsened since her last visit. 1 of the problem states that she does not check her glucose levels she has poor sleep hygiene she is constantly drinking coffee this cannot be good for her I will plan to CGM now and have her return in 2 weeks and see if we can better conclusion as to what is going on to see how we can address it. Wonder if she is becoming hypoglycemic because we could always add another medication but I do not know what is happening during the afternoon and she does occasionally have hypoglycemia. I will also look into getting her a personal CGM. Unfortunately we do not have any CGM devices so I will have her come back in 2 weeks for placement of the CGM and then have her return again in 2 weeks for review. Assessment & Plan (12/27/2018 11:15 AM EDT): Uncontrolled. The hemoglobin A1c is now 8.4% it has improved. At this point one other issues is elevated fasting blood glucose and I think is because she is eating at bedtime and not doing any clicks. She goes to bed early around 8 PM but she does have that Jell-O with fruits which is increasing her glucose levels. During the day she seems to be doing well and of course all of this is reported glucose levels because she forgot to bring in her meter today. I will give her a follow-up appointment. She also needs orthopedic shoes. I will order this on the follow-up visit. I will give her a follow-up in 6 weeks. Assessment & Plan (10/26/2018 11:00 AM EDT): Uncontrolled. She is having postprandial hypoglycemia after breakfast after administering 2 clicks or 4 units of Humalog at breakfast. She should decrease this to 1 click or 2 units of Humalog with breakfast. She should continue 3 clicks at lunch and 2 clicks at dinner if she eats. Continue Trulicity 1.5 mg weekly. Assessment & Plan (09/22/2018 4:14 PM EDT): Uncontrolled. Her last A1c was 9.2% on 08/26/2018. She will continue her current regimen for the time being I encouraged her to use Humalog with meals. I have prescribed the V-go 40. I think that she would do better with this device. In the meantime I am going to inquire about her freestyle josse CGM which previously was approved but she states she is never gone. I can reorder it again but now we have to submit new data and she has not been checking her glucose levels frequently so she may get rechecked it. We will see if we can follow-up on this. In the meantime I need lab work I do not have a comprehensive level I will check a CBC and urine microalbumin. Hyperlipidemia LDL goal <70 09/22/2018 Assessment & Plan (03/05/2025 10:37 AM EST): Based on new guidelines LDL should be less than 50. She is already at the maximum of rosuvastatin 40 and ezetimibe 10 mg her LDL is slightly elevated at 64 mg/dL. The only thing that potentially can be done is to add a PCSK9 inhibitor in addition to what she is taking. She states that she does not eat fried foods and I think that this is just genetics at this point. Will continue to monitor. Assessment & Plan (11/08/2024 10:13 AM EDT): Uncontrolled. LDL increased to 234 mg/dL she states she is taking all her medications. I asked her [employer] to check and make sure that she does have rosuvastatin and ezetimibe. She is already at the maximum dose. I think I would like to repeat lipid panel to confirm before making any further changes because typically as she is has fair control. I will request lipid panel for the follow-up visit. Assessment & Plan (07/14/2024 9:59 AM EDT): Uncontrolled. LDL now 107 mg/dL. She is taking ezetimibe and rosuvastatin but her LDL was elevated we will repeat the lipid panel and if it remains elevated she may need to use PCSK9 inhibitors. Assessment & Plan (01/13/2024 9:38 AM EDT): Based on last lab work LDL 71 is slightly elevated she is already on rosuvastatin and ezetimibe 10 mg. She may benefit to have LDL below 50 mg/dL based on peripheral arterial disease. She is going to repeat lipid panel this morning. Assessment & Plan (07/14/2023 10:35 AM EDT): Controlled. LDL 71 mg/dL continue rosuvastatin 40 mg no changes required. Assessment & Plan (04/14/2023 12:52 PM EST): Controlled. LDL 71 mg/dl. Continue ezetimibe 10 mg and rosuvastatin 40 mg no changes required. Assessment & Plan (11/16/2022 11:36 AM EDT): Uncontrolled. LDL is slightly elevated, already on crestor 40 mg daily, will observe and repeat lipid panel in 3 months. Assessment & Plan (05/18/2022 10:28 AM EST): Controlled. LDL 43 mg/dL on rosuvastatin 40 mg no changes required. Assessment & Plan (01/30/2022 10:00 AM EDT): Controlled. LDL is 43 mg/dl continue rosuvastatin 40 mg daily and ezetimibe 10 mg daily. No changes. Assessment & Plan (10/08/2021 10:10 AM EDT): Uncontrolled. LDL 96 mg/dL. Previously was well controlled with Crestor 40 mg and ezetimibe 10 mg. States that she has been taking her medications regularly. So I am going to repeat the lipid panel if the levels are still elevated she may need PCSK9 inhibitors. Assessment & Plan (07/08/2021 12:35 PM EDT): Did not repeat lipid panel, requested for the f/u visit. She should continue crestor 40 mg daily. Assessment & Plan (12/30/2020 9:48 AM EDT): Controlled. LDL 43 mg/dL on 05/30/2020 she should continue ezetimibe and rosuvastatin 40 mg. No changes. Assessment & Plan (09/10/2020 8:54 AM EDT): Controlled. LDL 47 mg/dL continue rosuvastatin and ezetimibe. No changes. Assessment & Plan (07/08/2020 9:54 AM EDT): Controlled. LDL 43 mg/dL continue Zetia 10 mg and rosuvastatin 40 mg. No changes. Assessment & Plan (06/10/2020 9:29 AM EST): Controlled, LDL 44 mg/dL on Crestor and ezetimibe no changes. Assessment & Plan (04/29/2020 10:32 AM EST): Controlled last LDL 38 mg and she stated at the time she was not taking ezetimibe now she is taking it along with rosuvastatin will repeat lipid panel. Assessment & Plan (03/20/2020 9:30 AM EST): Controlled. LDL 38 continue rosuvastatin 40 mg no changes. Assessment & Plan (02/07/2020 9:07 AM EDT): Controlled with LDL was 46 mg/dL continue Zetia and rosuvastatin. Assessment & Plan (12/05/2019 8:56 AM EDT): The patient has hyperlipidemia LDL of 104 on the last visit I prescribed Zetia she needs to repeat the lipid panel in February approximately 2 months from now if the LDL is still not less than 70 we will have to add a PCSK9 inhibitor. Assessment & Plan (11/02/2019 10:55 AM EDT): Controlled LDL 104 mg is a patient with peripheral vascular disease she needs to have the LDL below 70 mg she is on rosuvastatin 40 mg and still uncontrolled so I will add Zetia 10 mg daily. If this does not work for her then she should have PCSK9 inhibitors. Assessment & Plan (09/21/2019 9:48 AM EDT): I do not have a lipid panel. I am not sure if she did any lab work at [facility] because she does not come to [facility] for lab work. I have requested lipid panel in the past and I am not sure if this is done. I asked my medical review specialist to contact [facility] to have lab results faxed. In the meantime she is not taking rosuvastatin. She was getting rosuvastatin in the past but currently her medications are sent to her and packages and this medication is not included. This is a lady that has peripheral vascular disease requiring amputation and her LDL should be less than 70 mg/dL. Assessment & Plan (10/26/2018 11:01 AM EDT): Controlled no changes. Assessment & Plan (09/22/2018 4:14 PM EDT): I do not have a lipid panel she is on rosuvastatin 40 mg but will request lipid panel. Essential hypertension 09/22/2018 Assessment & Plan (09/10/2020 8:54 AM EDT): Controlled. Continue current medications we will check urine microalbumin creatinine ratio. Assessment & Plan (07/08/2020 9:53 AM EDT): Controlled continue current medications no changes. Assessment & Plan (06/10/2020 9:29 AM EST): Controlled on lisinopril. No changes. Assessment & Plan (04/29/2020 10:32 AM EST): Controlled continue current medications. Assessment & Plan (03/20/2020 9:31 AM EST): Controlled no changes to medications. Assessment & Plan (02/07/2020 9:06 AM EDT): Controlled continue current medications. Assessment & Plan (12/05/2019 8:57 AM EDT): Controlled no changes to medications. Assessment & Plan (11/02/2019 10:57 AM EDT): Controlled with lisinopril, amlodipine, atenolol. No changes Assessment & Plan (06/08/2019 10:14 AM EST): Controlled on current medications no changes. Assessment & Plan (10/26/2018 11:00 AM EDT): Controlled no changes. Assessment & Plan (09/22/2018 4:15 PM EDT): Controlled. She is taking atenolol 100 mg 2 tablets daily, amlodipine 5 mg and lisinopril 10 mg. No changes. Encounters Date Type Department Care Team Description 03/05/2025 10:10 AM EST Office Visit 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, with long-term current use of insulin, macular edema presence unspecified, unspecified proliferative retinopathy type; Hyperlipidemia LDL goal <70 from Last 3 Months Family History Medical History Relation Comments Diabetes Father Coronary artery disease Mother Diabetes Mother Hypertension Mother Relation Status Comments Father Mother Social History Tobacco Use Types Packs/Day Years Used Date Smoking Tobacco: Never Passive Smoke Exposure: Never Smokeless Tobacco: Never Tobacco Cessation:Counseling Given: Not Answered Alcohol Use Standard Drinks/Week Comments Yes 0 (1 standard drink = 0.6 oz pur e alcohol) socially Education Answer Date Recorded Are you interested in more education? Not on pavan e 08/07/2022 Are you concerned about learning? Not on file 08/07/2022 No 08/07/2022 No 08/07/2022 Digital Access Answer Date Recorded No 09/05/2022 No 09/05/2022 Reliable internet access at home? Not on file 09/05/2022 Device with a working camera? Not on file Comments Unknown Sex and Gender Information Value Date Recorded Sex Assigned at Not on file Legal Sex Female 1:16 PM EDT Gender Identity Not on file Sexual Orientation Not on file Last Filed Vital Signs Vital Sign Reading Time Taken Comments Blood Pressure 132/84 03/05/2025 10:53 AM EST Pulse 95 03/05/2025 10:03 AM EST Temperature 36.2 C (97.1 F) 11/08/2024 9:22 AM EDT Respiratory Rate 20 03/05/2025 10:03 AM EST Oxygen Saturation 98% 03/05/2025 10:03 AM EST Inhaled Oxygen Concentration - - Weight 60.8 kg (134 lb) 03/05/2025 10:03 AM EST Height 157.5 cm (5' 2.01 ) 11/08/2024 9:22 AM ED T Body Mass Index 24.5 11/08/2024 9:22 AM EDT Plan of Treatment Upcoming Encounters Date Type Department Care Team (Late st Contact Info) Description 09/04/2025 10:30 AM EDT Office Visit [facility] [place] [address] Cam De Jesus DO [address] [place] [address] [email or web address] Health Maintenance Due Date Last Done Comments DEPRESSION SCREENING 1967 HEPATITIS C SCREENING 1973 COLOGUARD 2000 COLONOSCOPY 2000 COLORECTAL CANCER SCREENING 2000 FIT TEST 2000 FOBT 2000 SIGMOIDOSCOPY 2000 VIRTUAL COLONOSCOPY 2000 RSV VACCINE (1 - Risk 50-74 years 1-dose series) 2005 ZOSTER VACCINES (1 of 2) 2005 PNEUMOCOCCAL VACCINES (50+ years) (2 of 2 - PCV) 10/09/2016 10/10/2015, 08/03/2014, 1974 DIABETIC EYE EXAM 09/22/2018 OSTEOPOROSIS SCREENING INITIAL (ONE-TIME) 2020 INFLUENZA VACCINE (#1) 2024 01/17/2019 COVID-19 VACCINE (2 - season) 2024 06/18/2020 MAMMOGRAM 02/16/2025 02/16/2023, 06/29/2018 CREATININE LEVEL 07/06/2025 07/06/2024, , 10/01/2021, Additional history exists POTASSIUM LEVEL 07/06/2025 07/06/2024, 10/11, 10/01/2021, Additional history exists HEMOGLOBIN A1C 08/29/2025 03/01/2025, 10/11, 07/06/2024, Additional history exists BLOOD PRESSURE 09/02/2025 03/05/2025 Adult Td,Tdap Booster 07/18/2034 07/18/2024 SMOKING STATUS SCREENING (Once After 26 Yrs) Completed 03/05/2025 HEPATITIS A VACCINES Aged Out No long er eligible based on patient's age to complete this topic HIB VACCINES Aged Out No longer eligi ble based on patient's age to complete this topic MENINGOCOCCAL VACCINES (ACWY) Aged Out No longer eligible based on patient's age to complete this topic MENINGOCOCCAL VACCINES (B) Aged Out N o longer eligible based on patient's age to complete this topic Medical Devices Not on file Procedures Procedure Name Priority Date/Time Associated Diagnosis Comments LIPID PANEL Routine 03/01/2025 9:37 AM EST Type 2 diabetes mellitus with diabetic polyneuropathy, with long-term current use of insulin Hyperlipidemia LDL goal <70 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, with long-term current use of insulin, macular edema presence unspecified, unspecified proliferative retinopathy type HEMOGLOBIN A1C Routine 03/01/2025 9:37 AM EST Type 2 diabetes mellitus with diabetic polyneuropathy, 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, with long-term current use of insulin, macular edema presence unspecified, unspecified proliferative retinopathy type COMPREHENSIVE METABOLIC PANEL (CMP) Routine 07/06/2024 9:33 AM EDT Type 2 diabetes mellitus with diabetic polyneuropathy, with long-term current use of insulin from Last 3 Months or Most Recently Relevant to Health Maintenance Results * (ABNORMAL) Hemoglobin A1c (03/01/2025 9:37 AM EST) Hemoglobin A1c 6.5(H) 4.3 - 5.6 % 03/01/2025 4:06 PM EST [facility] Calculated Mean Blood Glucose 140 mg/dL 03/01/2025 4:06 PM EST [facility] Comment:There is no establis [facility] normal range for the Estimated Average Glucose (EAG). However, a HbA1c of 5.6% (upper limit of normal) represents an EAG of 114 mg/dL. The diagnostic HbA1c level for diabetes is greater than or equal to 6.5%, which represents an EAG greater than or equal to 140 mg/dL. Blood (Blood) Venipuncture / Unknown 03/01/2025 9:37 AM EST 03/01/2025 9:37 AM EST us Cam De Jesus DO LAB BLOOD BKR ORDERABLES Final R esult [facility] [address] [place] [address] * Lipid Panel (03/01/2025 9:37 AM EST) Cholesterol 141 <200 mg/dL 03/01/2025 3:59 PM EST [facility] HDL 54 >=40 mg/dL 03/01/2025 3:59 PM EST [facility] Calculated LDL 64 <130 mg/dL 03/01/2025 3:59 PM EST [facility] Comment:LDL is calculated us ing the Murillo-NIH equation (RIKKI Cardiol. 2019August 10;5(5):540-548). Non-HDL Cholesterol 87 mg/dL 03/01/2025 3:59 PM EST [facility] Comment:Guidelines suggest a non-HDL cholesterol goal 30 mg/dL higher than the patient-specific LDL cholesterol goal. Cardiac Risk Ratio 2.6 0.0 - 5.0 2024 3:59 PM EST [facility] Triglycerides 133 <=150 mg/dL 03/01/2025 3:59 PM [facility] Blood (Blood) Venipuncture / Unknown 03/01/2025 9:37 AM EST 03/01/2025 9:37 AM EST Cam De Jesus DO LAB BLOOD BKR ORDERABLES Final R esult [facility] [address] [place] [address] * (ABNORMAL) Comprehensive metabolic panel (07/06/2024 9:33 AM EDT) Pathologist [facility] SODIUM 142 133 - 146 mmol/L [facility] POTASSIUM 4.6 3.3 - 5.1 mmol/L [facility] CHLORIDE 103 96 - 108 mmol/L [facility] CO2 30 21 - 35 mmol/L [facility] BUN 13 6 - 19 mg/dL [facility] CREATININE 0.90 0.5 - 1.5 mg/dL [facility] GLUCOSE 144(H) 70 - 99 mg/dL [facility] ALBUMIN 4.3 3.9 - 4.8 g/dL [facility] TOTAL PROTEIN 7.9 6.5 - 8.0 g/dL [facility] CALCIUM 9.9 8.4 - 10.3 mg/dL [facility] ALKALINE PHOSPHATASE 106 39 - 117 U/L [facility] TOTAL BILIRUBIN 1.0 0.0 - 1.2 mg/dL [facility] AST 22 0 - 37 U/L [facility] ALT 13 0 - 40 U/L [facility] GLOBULIN 3.6 1 - 4.8 g/dL [facility] EGFR 69 >59 mL/min/1.7 3m2 [facility] Comment:Estimated glomerular filtration rate calculated using the CKD-EPI refit equation. ANION GAP 14 10 - 20 mmol/L [facility] Blood 07/06/2024 9:33 AM EDT 07/06/2024 9:39 AM EDT us Cam De Jesus DO LAB BLOOD BKR ORDERABLES Final R esult [facility] [address] [place] [address] from Last 3 Months or Most Recently Relevant to Health Maintenance Insurance [address] [place] [id number] [facility] MEDICARE REPLACEMENT [place] [id number] [place] [phone] [facility] MEDICARE REPLACEMENT MEDICARE REPLACEMENT MEDICARE REPLACEMENT [address] [place] [address] MEDICARE REPLACEMENT MEDICARE REPLACEMENT [address] [place] [address] [address] [place] [address] MEDICARE REPLACEMENT [address] [place] [address] [facility] MEDICARE REPLACEMENT [place] [id number] Care Teams Lockstitch Binder Relationship Specialty Start Date End Date Name, MD Christopher [address] [place] [id number] PCP - General Geriatric Psychiatry 09/22/18 Additional Source Comments The information contained in this document represents components of the legal health record. It is not the complete legal health record.[facility]
--- OUTSIDE RECORDS SUMMARY | 2025-04-10 17:41 | XMS_ITS | Clinical Summary ---
Author Organization [address] [facility] Address [address] [place] [address] Phone Care Team Providers Care Press Officer Name Role Phone Unavailable Primary Care Provider Unavailabl e Allergies Active Allergy Reactions Criticality Noted Date Comments Levofloxacin 04/19/2024 Penicillins 04/19/2024 Medications amLODIPine (NORVASC) 10 mg tablet Take 1 tablet (10 mg total) by mouth 1 (one) time each day. Active aspirin 81 mg EC tablet Take 1 tablet (81 mg total) by mouth 1 (one) time each day. Active atenoloL (TENORMIN) 100 mg tablet Take 1 tablet (100 mg total) by mouth 1 (one) time each day. Active ezetimibe (ZETIA) 10 mg tablet Take 1 tablet (10 mg total) by mouth 1 (one) time each day. Active FLUoxetine (PROzac) 20 mg capsule Take 1 capsule (20 mg total) by mouth 1 (one) time each day. Active gabapentin (NEURONTIN) 600 mg tablet Take 1 tablet (600 mg total) by mouth. Active insulin degludec (Tresiba FlexTouch U-100) 100 unit/mL (3 mL) injection pen Inject 100 Units under the skin at bedtime. Active lisinopril (PRINIVIL,ZESTR IL) 40 mg tablet Take 1 tablet (40 mg total) by mouth 1 (one) time each day. Active omeprazole (PriLOSEC) [address] capsule Take 1 capsule (20 mg total) by mouth 1 (one) time each day. Do not crush or chew. Active QUEtiapine (SEROquel) 25 mg tablet Take 1 tablet (25 mg total) by mouth at bedtime. Active rivaroxaban (XARELTO) 10 mg tablet Take 2.5 mg by mouth. Take with food. Active rosuvastatin (CRESTOR) 40 mg tablet Take 1 tablet (40 mg total) by mouth 1 (one) time each day. Active traZODone (DESYREL) 100 mg tablet Take 1 tablet (100 mg total) by mouth at bedtime. Active loratadine (CLARITIN) 10 mg tablet Take 1 tablet (10 mg total) by mouth 1 (one) time each day. Active dulaglutide (Trulicity) 4.5 mg/0.5 mL pen injector injection Inject 0.5 mL (4.5 mg total) under the skin every 7 (seven) days. Active Active Problems Problem Noted Date Diagnosed Date Type 2 diabetes mellitus 04/14/2024 PVD (peripheral vascular disease) 04/14/2024 Callus 04/14/2024 Social History Tobacco Use Types Packs/Day Years Used Date Smoking Tobacco: Never Assessed Comments Unknown Sex and Gender Information Value Date Recorded Sex Assigned at Not on file Legal Sex Female 4:38 PM EDT Gender Identity Not on file Sexual Orientation Not on file Last Filed Vital Signs Vital Sign Reading Time Taken Comments Blood Pressure - - Pulse - - Temperature - - Respiratory Rate - - Oxygen Saturation - - Inhaled Oxygen Concentration - - Weight 62.1 kg (137 lb) 07/18/2024 9:40 AM EDT Height 149.9 cm (4' 11 ) 07/18/2024 9:40 AM EDT Body Mass Index 27.67 07/18/2024 9:40 AM EDT Plan of Treatment Health Maintenance Due Date Last Done Comments Breast Cancer Screening 1955 Colorectal Cancer Screening: Colonoscopy 1955 Diabetes: Annual Foot Exam 1965 Diabetes: Annual Retina Eye Exam 1965 RSV Immunization Adult Patients (1 - Risk 50-74 years 1-dose series) 2005 Zoster Vaccines (1 of 2) 2005 Falls Risk Assessment 02/06/2024 Hepatitis C Screening 02/06/2024 Osteoporosis Screening (Bone Density Screening) 02/06/2024 Social Influencers of Health Screening 02/06/2024 Depression Screening 04/12/2024 Diabetes: Blood Sugar Control Test (HGBA1C) 07/20/2024 01/20/2024, 01/13/2024, 01/27/2023 COVID-19 Vaccine (8 - 2025-26 season) 2024 02/02/2024, 03/19/2023, 01/27/2022, Additional history exists Influenza Vaccine (#1) 2024 , 01/18/2023, 01/21/2022, Additional history exists Diabetes: Annual GFR (Glomerular Filtration Rate) 07/06/2025 07/06/2024, 11/04/2022, 10/01/2021, Additional history exists Hypertension/CHF/CAD Annual BMP Blood Test 07/06/2025 07/06/2024, 11/04/2022, 10/01/2021, Additional history exists Diabetes: Annual Urine Albumin-Creatinine Ratio (uACR) 07/27/2025 07/27/2024, 07/06/2024, 11/10/2022, Additional history exists Pneumococcal Vaccine: 50+ Years (3 of 3 - PCV20 or PCV21) 07/08/2026 07/08/2021, 10/10/2015, 08/03/2014, Additional history exists Cholesterol Screening (Lipid Panel) 07/06/2029 07/06/2024, 09/03/2021 DTaP,Tdap,and Td Vaccines (3 - Td or Tdap) 07/18/2034 07/18/2024, 12/29/2016 HIB Vaccines Aged Out No longer eligi ble based on patient's age to complete this topic HPV Vaccines Aged Out No longer eligi ble based on patient's age to complete this topic Hepatitis A Vaccines Aged Out No long er eligible based on patient's age to complete this topic Hepatitis B Vaccines Aged Out No long er eligible based on patient's age to complete this topic IPV Vaccines Aged Out No longer eligi ble based on patient's age to complete this topic MMR Vaccines Aged Out No longer eligi ble based on patient's age to complete this topic Meningococcal ACWY Vaccine Aged Out N o longer eligible based on patient's age to complete this topic Meningococcal B Vaccine Aged Out No l onger eligible based on patient's age to complete this topic RSV Immunization Patients Under 20 months Aged Out No longer eligible based on patient's age to complete this topic Varicella Vaccines Aged Out No longer eligible based on patient's age to complete this topic Insurance [facility] Member Subscriber Plan / Payer (Ef fective 2022-Present) Name:Fidelina Le Relation to Subscriber:Self Name:Fidelina eL Payer ID:[id number] Group ID:[id number] Type:Not on file Address: [address] [place] [phone] [place]
--- OUTSIDE RECORDS SUMMARY | 2025-04-10 17:41 | XMS_ITS | Clinical Summary ---
Author Organization [employer] Address [address] [facility] 7[address] [place] [address] Care Team Providers Care Stretcher Operator Name Role Phone Name, Christopher CARRASCO Primary Care Provider [phone] Allergies Active Allergy Reactions Criticality Noted Date Comments Levofloxacin 08/14/2014 Other reaction(s): Other (see comments) Penicillins Rash Low 07/24/2014 Other reaction(s): Rash Medications traZODone (Desyrel) 100 MG tablet TOME CYNTHIA TABLETA TOINDIA LOS D AL ACOSTARSE 05/04/19 23 Active rosuvastatin (Crestor) 40 MG tablet TOME CYNTHIA TABLETA TODOCamila LOS PAGAN 12/30/19 17 Active QUEtiapine (SEROquel) 25 MG tablet TAKE 1 TO 2 TABLETS BY MOUTH AT BEDTIME NEEDED FOR ANXIETY OR SLEEP 05/04/19 23 Active insulin degludec (Tresiba FlexTouch) 100 UNIT/ML injection Inject 10 Units under the skin in the morning. 05/18/19 23 Active glucose blood (FREESTYLE LITE) test strip 1 each by Other route. 01/31/20 22 Active FLUoxetine (PROzac) 20 MG capsule Take 20 mg by mouth in the morning. 01/26/20 18 Active ezetimibe (Zetia) 10 MG tablet TOME CYNTHIA TABLETA TODOS LOS PAGAN 01/08/20 21 Active atenolol (Tenormin) 100 MG tablet Take 200 mg by mouth in the morning. 03/11/20 18 Active lisinopril 40 MG tablet TAKE 1 TABLET BY MOUTH 1 TIME EACH DAY. 08/13/19 23 Active loratadine (Claritin) 10 MG tablet Take 1 tablet (10 mg) by mouth in the morning. 30 tablet 3 05/21/19 24 Active Trulicity 4.5 MG/0.5ML solution pen-injectorInd ications:Type 2 diabetes mellitus with other specified complication, with long-term current use of insulin ([facility]) Inject 4.5 mg under the skin 1 (one) time per week. 4 each 11/11/19 24 Active rivaroxaban (Xarelto) 2.5 MG tablet Take 2.5 mg by mouth. 12/03/19 24 Active omeprazole (PriLOSEC) [address] capsuleIndicati ons:Gastroesoph ageal reflux disease, unspecified whether esophagitis present Take 1 capsule (20 mg) by mouth before breakfast. Do not crush or chew. 90 capsule 1 03/31/20 24 Active Aspirin Low Dose 81 MG EC tablet TOME CYNTHIA TABLETA (81 MG) POR VIA ORAL EN LA MANANA 90 tablet 3 07/08/19 25 Active mometasone (Elocon) 0.1 % ointment Apply topically Once per day. 45 g 2 01/23/20 25 026 Active gabapentin (Neurontin) 600 MG tabletIndicatio ns:Pain in inferior left lower extremity TOME CYNTHIA TABLETA HOMERO VECES AL HYACINTH 90 tablet 3 01/23/20 25 Active amLODIPine (Norvasc) 10 MG tablet TAKE 1 TABLET BY MOUTH EVERY MORNING 90 tablet 3 03/29/20 25 Active amLODIPine (Norvasc) 10 MG tablet TOME CYNTHIA TABLETA TODOS LOS PAGAN EN LA MANANA 90 tablet 3 01/03/20 24 025 Discontinued Active Problems Problem Noted Date Diagnosed Date Stage 3a chronic kidney disease ([facility]) 2024 Pain in inferior left lower extremity 12/29/2024 Overview (12/29/2024): See above PVD (peripheral vascular disease) 07/17/2024 Anticoagulated 01/20/2024 Overview (01/20/2024): Xarelto was started after left leg angioplasty in addition to ASA. Medication was started by vascular surgery at [facility] in November 2023. Usual duration is 90 days Blind right eye 06/08/2022 Depression 06/08/2022 GERD (gastroesophageal reflux disease) 3 Diabetic polyneuropathy asso ciated with type 2 diabetes mellitus 06/08/2022 Recurrent major depression in partial remission 06/08/2022 Amputated below knee ([facility]) 06/25/2020 Diabetic nephropathy associa tay with type 2 diabetes mellitus 06/25/2020 Hypertensive heart disease without heart failure 06/25/2020 Hypercalcemia 02/07/2020 Overview (06/08/2022): Last Assessment & Plan: We will repeat comprehensive and intact PTH levels 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 I will check 1, 25 dihydroxy vitamin D but again she has been supplementing this medication. 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 I will check 1, 25 dihydroxy vitamin D but again she has been supplementing this medication. Vitamin D deficiency 11/02/2019 Overview (06/08/2022): Last Assessment & Plan: MND levels are now replete stop ergocalciferol. Will prescribe cholecalciferol 2000 units but the patient is on active vitamin D so it may not make much of a difference. Last Assessment & Plan: MND levels are now replete stop ergocalciferol. Will prescribe cholecalciferol 2000 units but the patient is on active vitamin D so it may not make much of a difference. Secondary hyperparathyroidism 11/02/2019 Overview (06/08/2022): Last Assessment & Plan: She is following with the corrections lieutenant serum calcium levels have been elevated but her intact PTH level improved. She is off cholecalciferol but continues on calcifediol. Last Assessment & Plan: She is following with the corrections lieutenant serum calcium levels have been elevated but her intact PTH level improved. She is off cholecalciferol but continues on calcifediol. Hyperlipidemia LDL goal <70 09/22/2018 Overview (10/20/2023): Last Assessment & Plan: Controlled, LDL 44 mg/dL on Crestor and ezetimibe no changes. Last Assessment & Plan: Controlled. LDL 47 mg/dL continue rosuvastatin and ezetimibe. No changes. Last Assessment & Plan: Controlled. LDL 43 mg/dL on rosuvastatin 40 mg no changes required. Last Assessment & Plan: Uncontrolled. LDL is slightly elevated, already on crestor 40 mg daily, will observe and repeat lipid panel in 3 months. Last Assessment & Plan: Controlled. LDL 71 mg/dl. Continue ezetimibe 10 mg and rosuvastatin 40 mg no changes required. Last Assessment & Plan: Controlled. LDL 71 mg/dL continue rosuvastatin 40 mg no changes required. Essential hypertension 08/31/2017 Overview (06/08/2022): Last Assessment & Plan: Controlled on lisinopril. No changes. Last Assessment & Plan: Controlled. Continue current medications we will check urine microalbumin creatinine ratio. Last Assessment & Plan: Controlled. Continue current medications we will check urine microalbumin creatinine ratio. Hx of right BKA ([facility]) 03/30/2017 Type 2 diabetes mellitus wit h proliferative retinopathy of both eyes, with long-term current use of insulin 12/29/2016 Overview (10/20/2023): Last Assessment & Plan: Uncontrolled she still [...] the Humalog she should stop the pioglitazone. Last Assessment & Plan: Unfortunately she continues [...] her a follow-up appointment in 4 months. Last Assessment & Plan: Uncontrolled. Hemoglobin A1c 6.7%, but unfortunately too [...] in the safe use of this medication. Last Assessment & Plan: Uncontrolled. Her hemoglobin A1c is 6.2% but [...] medication. She will follow in 3 months. Last Assessment & Plan: Controlled. Hemoglobin A1c 6.1% continue Trulicity 4.5 mg weekly. 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 ([facility]) 06/08/2019 10/01/2022 Loss of hair 01/28/2018 05/21/2023 History of cholecystectomy 05/05/2017 0 05/21/[address] scan, kidney 12/29/2016 Amputated toe 08/14/2015 10/01/2022 Cellulitis 08/14/2015 06/08/2022 Diabetes mellitus type 2, uncontrolled 08/14/2015 01/01/2023 Encounters Date Type Department Care Team Description 04/10/2025 Orders Only [facility] [place] [address] Name, MD Christopher 03/29/2025 Refill [facility] [address] [place] [address] Name, MD Christopher 01/22/2025 1:00 PM EDT Office Visit [facility] [address] [place] [address] Name, MD Christopher Preoperative examination (Primary Dx); Type 2 diabetes mellitus with other specified complication, with long-term current use of insulin (HCC); Pain in inferior left lower extremity 01/22/2025 Travel 01/10/2025 Telephone [facility] [address] [facility] [place] [place] [address] Name, MD Christopher Durable Medical Equipment from Last 3 Months Immunizations Immunization Administration Dates Next Due Influenza High-dose Quadriva lent Preservative Free 01/18/2023,01/21/2022,01/13/2021 Influenza injectable quadriv alent IIV4 with preservative 01/28/2018,12/29/2016,01/13/2016 Influenza injectable quadriv alent preservative free 01/17/2019,12/25/2014 Influenza, High Dose Seasona l, Preservative Free 02/02/2024,12/11/2014 Novel [id number] 02/20/2016 Pfizer Covid-19 Vaccine 12+ 03/19/2023 Pneumococcal Conjugate PCV 13 07/08/2021 Pneumococcal Polysaccharide PPSV23 10/10/2015,,1974 TD (adult), 2 Lf tetanus tox oid, preservative free, adsorbed 12/29/2016 Tdap 07/18/2024 Social History Tobacco Use Types Packs/Day Years Used Date Smoking Tobacco: Never Passive Smoke Exposure: Never Smokeless Tobacco: Never Tobacco Cessation:Counseling Given: Not Answered Alcohol Use Standard Drinks/Week Comments Never 0 (1 standard drink = 0.6 oz pur e alcohol) Depression Answer Date Recorded Patient Health Questionnaire-9 Score 15 07/09/2023 Patient Health Questionnaire-9 Score 15 07/09/2023 Last PHQ-9: Questionnaire Data Not on file 0 07/09/2023 Housing Stability Answer Date Recorded What is your housing situation today? I have deb cardona 12/29/[address] you li ve. Do you have problems with any of the following? None of the above 12/29/2024 Food Insecurity Answer Date Recorded Within the past 12 months, y ou worried that your food would run out before you got money to buy more: Never True 12/29/2024 Within the past 12 months,th e food you bought just didn't last and you didn't have enough money to get more: Never True Transportation Answer Date Recorded In the past 12 months, has l ack of transportation kept you from medical appts, meetings, work or from getting things needed for daily living? No 12/29/2024 Utilities Answer Date Recorded In the past 12 months, has t he electric, gas, oil or water company threatened to shut off services in your home? No 12/29/2024 Depression Answer Date Recorded Patient Health Questionnaire-2 Score 6 07/09/2023 Internet Access Answer Date Recorded Internet Access Q1 No 12/29/2024 Internet Access Q2 Not on file 12/29/2024 Comments Unknown Sex and Gender Information Value Date Recorded Sex Assigned at Female 02/09/2022 10:27 AM EDT Legal Sex Female 10:27 AM EDT Gender Identity Female 02/09/2022 10:27 AM EDT Sexual Orientation Straight 02/09/2022 10 :27 AM EDT Last Filed Vital Signs Vital Sign Reading Time Taken Comments Blood Pressure 154/76 01/22/2025 1:07 PM EDT Pulse 95 01/22/2025 1:07 PM EDT Temperature 36.6 C (97.9 F) 01/22/2025 1:07 PM EDT Respiratory Rate 16 01/22/2025 1:07 PM EDT Oxygen Saturation 97% 01/22/2025 1:07 PM EDT Inhaled Oxygen Concentration - - Weight 61.8 kg (136 lb 4 oz) 01/22/2025 1:07 PM EDT Height 157.5 cm (5' 2 ) 01/22/2025 1:07 PM EDT Body Mass Index 24.92 01/22/2025 1:07 PM EDT Plan of Treatment Upcoming Encounters Date Type Department Care Team (Late st Contact Info) Description 2025 11:00 AM EST Office Visit [facility] [address] [place] [address] Name, MD Christopher [address] [place] [address] Health Maintenance Due Date Last Done Comments CT Colonography 1955 Colonoscopy 1955 Colorectal Cancer Screening 1955 FIT DNA/Cologuard 1955 FIT 1955 FOBT 1955 Sigmoidoscopy 1955 Alcohol/Substance Use Screening 1967 Hepatitis C Screening 1973 RSV Patients and Patients Aged 60 years or older (1 - Risk 50-74 years 1-dose series) 2005 Zoster Vaccines (1 of 2) 2005 Depression Monitoring 01/09/2024 07/09/2023, 024 Lipid Panel 02/12/2024 02/11/2023, 10/11, 09/03/2021, Additional history exists Diabetes: Foot Exam 07/08/2024 07/09/2023, 07/09/2023, 07/09/2023, Additional history exists COVID-19 Vaccine ( season) 2024 02/02/2024, 03/19/2023, 01/27/2022, Additional history exists Influenza Vaccine (#1) 2024 , 01/18/2023, 01/21/2022, Additional history exists Mammogram 02/23/2025 04/10/2025, 02/10, 02/16/2023, Additional history exists Diabetes: Hemoglobin A1C 06/01/2025 025, 11/01/2024, 07/06/2024, Additional history exists Eye Exam 12/05/2025 12/04/2024, 11/06/2022 SDOH Screening 12/29/2025 12/29/2024 Tobacco Screening 01/22/2026 01/22/2025 Pneumococcal Vaccine: 50+ Years (3 of 3 - PCV20 or PCV21) 07/08/2026 07/08/2021, 10/10/2015, 08/03/2014, Additional history exists DTaP/Tdap/Td Vaccines (2 - Td or Tdap) 07/18/2034 07/18/2024, 12/29/2016 [...] patient's age to complete this topic Meningococcal Vaccine Aged Out No royer christian eligible based on patient's age to complete this topic RSV under 20 months Aged Out No longe r eligible based on patient's age to complete this topic Rotavirus Vaccines Aged Out No longer eligible based on patient's age to complete this topic Procedures Procedure Name Priority Date/Time Associated Diagnosis Comments BI MAMMOGRAM SCREENING TOMOSYNTHESIS BILATERAL Routine 04/10/2025 2:00 PM EST POCT GLUCOSE (CPT-80310) Routine 01/22/2025 1:08 PM EDT Type 2 diabetes mellitus with other specified complication, with long-term current use of insulin ([facility]) POCT GLYCATED HEMOGLOBIN, TOTAL Routine 01/20/2024 11:25 AM EDT Type 2 diabetes mellitus with other specified complication, with long-term current use of insulin (CMS/HCC) LIPID PANEL, STANDARD Routine 09/03/2021 9:56 AM EDT from Last 3 Months or Most Recently Relevant to Health Maintenance Results * BI Mammogram Screening Tomosynthesis Bilateral (04/10/2025 2:00 PM EST) Anatomical Region Laterality Modality Breast Bilateral Mammography 04/10/2025 2:00 PM EST Narrative 04/10/2025 4:41 PM EST [facility] [address] [place] [address] Mammography Report Signed Patient: Dayana Le MR#: [id number] : 1955 Acct:[id number] Age/Sex: 69 / F ADM Date: 04/10/25 Loc: HO.MAMMO Attending Dr: Christopher Theodore MD Ordering Physician: Christopher Theodore MD Results: 1Negative Date of Service: 04/10/25 Follow Up: 1 Year From Orig inal Mammogram Procedure(s): MM tomosynthesis screening BI Accession Number(s): [id number] cc: Christopher Theodore MD Reason For Exam: SCREENING EXAMINATION: MM SCREENING DIGITAL BREAST TOMOSYNTHESIS, BILATERAL CLINICAL INFORMATION: Screening. Asymptomatic. COMPARISON: Mammography: Comparison is made with available priors TECHNIQUE: Digital breast mammography with tomosynthesis is performed in both the craniocaudal and mediolateral oblique views along with computer-aided detection (CAD). FINDINGS: The breasts are heterogeneously dense, which may obscure small masses. There are no significant masses, abnormal calcifications, or other abnormalities. MM/MM tomosynthesis screening BI IMPRESSION: No mammographic evidence of malignancy. ASSESSMENT: BI-RADS Category 1: Negative RECOMMENDATION: Routine annual mammography screening. 1 year F/U This examination should not preclude the clinical evaluation of a suspicious palpable abnormality. This patient's information was entered into a reminder system with a target due date for their next mammogram. Electronically signed by: Lesly Felix DO 04/10/2025 04:38 PM [facility] Dictated By: Lesly Felix DO Signed By: <Electronically signed by Lesly Felix DO in OV> 04/10/25 1638 DD/ 1400 TD/TT: 04/10/25 1442 Billing Administrator: Procedure Note Donotuseinterpreter, Image - 04/10/2025 [facility] [address] [place] [address] Mammography Report Signed Patient: Neetu Le#: [id number] : 6Acct:[id number] Age/Sex: 69 / FADM Date: 04/10/25 Loc: [place] Attending Dr: Christopher Theodore MD Ordering Physician: Christopher Theodoreesults: 1Negative Date of Service: 04/10/25Follow Up: 1 Year From Orig inal Mammogram Procedure(s): MM tomosynthesis screening BI Accession Number(s): [id number] cc: NameChristopher MD Reason For Exam: SCREENING EXAMINATION: MM SCREENING DIGITAL BREAST TOMOSYNTHESIS, BILATERAL CLINICAL INFORMATION: Screening. Asymptomatic. COMPARISON: Mammography: Comparison is made with available priors TECHNIQUE: Digital breast mammography with tomosynthesis is performed in both the craniocaudal and mediolateral oblique views along with computer-aided detection (CAD). FINDINGS: The breasts are heterogeneously dense, which may obscure small masses. There are no significant masses, abnormal calcifications, or other abnormalities. MM/MM tomosynthesis screening BI IMPRESSION: No mammographic evidence of malignancy. ASSESSMENT: BI-RADS Category 1: Negative RECOMMENDATION: Routine annual mammography screening. 1 year F/U This examination should not preclude the clinical evaluation of a suspicious palpable abnormality. This patient's information was entered into a reminder system with a target due date for their next mammogram. Electronically signed by: Lesly Felix DO 04/10/2025 04:38 PM EST Dictated By: Lesly Felix DO Signed By: <Electronically signed by Lesly Felix DO in OV> 04/10/25 1638 DD/ 1400 TD/TT: 04/10/25 1442 Billing Administrator: us Christopher Theodore MD IMG BI PROCEDURES Final Result * POCT Glucose (01/22/2025 1:08 PM EDT) Pathologist [facility] Glucose Blood, POC 124 60 - 200 mg/dL QC Media Lot # [id number] Lot# Expiration Date Blood Capillary blood specimen / Unknown 01/22/2025 1:08 PM EDT us Christopher Theodore MD POINT OF CARE TEST ENTER/EDIT OR DERABLES Final Result * (ABNORMAL) LIPID PANEL, STANDARD (09/03/2021 9:56 AM EDT) Chol/HDLC Ratio 5.1(H) <5.0 (calc) [facility] Cholesterol, Total 174 <200 mg/dL [facility] HDL Cholesterol 34(L) > OR = 50 mg/dL [facility] LDL Cholesterol 106(H) mg/dL (calc) [facility] Comment: Reference range: <100 Desirable range <100 mg/dL for primary prevention; <70 mg/dL for patients with CHD or diabetic patients with > or = 2 CHD risk factors. LDL-C is now calculated using the Robyn calculation, which is a validated novel method providing better accuracy than the Friedewald equation in the estimation of LDL-C. Hola SS et al. RIKKI. 2013;310(19): 1685-2460 (http://education.INFIMET/faq/SGQ390) Non-HDL Cholesterol 140(H) <130 mg/dL (calc) [facility] Comment: For patients with diabetes plus 1 major ASCVD risk factor, treating to a non-HDL-C goal of <100 mg/dL (LDL-C of <70 mg/dL) is considered a therapeutic option. Triglycerides 227(H) <150 mg/dL [facility] Comment: If a non-fasting specimen was collected, consider repeat triglyceride testing on a fasting specimen if clinically indicated. Moreno et al. J. of Clin. Lipidol. 2015;9:129-169. 09/03/2021 9:56 AM EDT us Christopher Theodore MD LAB BLOOD ORDERABLES Final Resul t [facility] [address] from Last 3 Months or Most Recently Relevant to Health Maintenance Insurance [facility] SKILLED NURSING OPTIONS (HMO D-SNP) ANNA ARMENTA [id number] Care Teams Stretcher Operator Relationship Specialty Start Date End Date Name, MD Christopher [address] [place] [phone] PCP - General Family Medicine 11/20/16
--- OUTSIDE RECORDS SUMMARY | 2025-04-10 17:41 | XMS_ITS | Encounter Summary ---
Author Organization [employer] Address [address] [facility] 7[address] [place] [address] Care Team Providers Care Multi Media Specialist Name Role Phone Name, Christopher CARRASCO Primary Care Provider [phone] Reason for Visit * Reason Comments Med Refill Encounter Details Date Type Department Care Team ([facility] st Contact Info) Description 08/14/2024 Refill [facility] [address] [place], [place] [id number] Name, MD Christopher [address] [place], [place] [phone] Gastroesophageal reflux disease, unspecified whether esophagitis present Social History Tobacco Use Types Packs/Day Years [...] housing situation today? I have deb cardona 07/09/[address] you li ve. Do you have problems with any of the following? None of the above 07/09/2023 Food Insecurity Answer Date Recorded Within the past 12 months, y ou worried that your food would run out before you got money to buy more: Never True 07/09/2023 Within the past 12 months,th e food you bought just didn't last and you didn't have enough money to get more: Never True Transportation Answer Date Recorded In the past 12 months, has l ack of transportation kept you from medical appts, meetings, work or from getting things needed for daily living? No 07/09/2023 Utilities Answer Date Recorded In the past 12 months, has t he electric, gas, oil or water company threatened to shut off services in your home? No 07/09/2023 Depression Answer Date Recorded Patient Health Questionnaire-2 Score 6 07/09/2023 Comments Unknown Sex and Gender Information Value [...] Description 2025 11:00 AM EST Office Visit [facility] [address] [place] [phone] Name, MD Christopher [address] [place] [phone] documented as of this encounter Visit Diagnoses Diagnosis Gastroesophageal reflux disease, unspecified whether esophagitis present documented in this encounter Additional Health Concerns Assessment Noted Time PHQ-9 Depression Total Score: 15 024 10:51 AM EDT documented as of this encounter Care Teams Multi Media Specialist Relationship Specialty Start Date End Date Name, MD Christopher [address] [place] [id number] PCP - General Family Medicine 11/20/16 documented as of this encounter
--- OUTSIDE RECORDS SUMMARY | 2025-04-10 17:41 | XMS_ITS | Encounter Summary ---
Author Organization [employer] Address [address] [place] [address] Care Team Providers Care Blow Mold Machine Operator Name Role Phone Name, Christopher CARRASCO Primary Care Provider [phone] Encounter Details Date Type Department Care Team ([facility] st Contact Info) Description 04/10/2025 Orders Only [facility] [address] [place], [place] [phone] Name, MD Christopher [address] [place], [place] [phone] Social History Tobacco Use Types Packs/Day Years Used Date Smoking Tobacco: Never Passive Smoke Exposure: Never Smokeless Tobacco: Never Alcohol Use Standard [...] Description 2025 11:00 AM EST Office Visit [facility] [address] [place] [phone] Name, MD Christopher [address] [place] [address] documented as of this encounter Procedures Procedure Name Priority Date/Time Associated Diagnosis Comments BI MAMMOGRAM SCREENING TOMOSYNTHESIS BILATERAL Routine 04/10/2025 2:00 PM EST documented in this encounter Results * BI Mammogram Screening Tomosynthesis Bilateral (04/10/2025 2:00 PM EST) Anatomical Region Laterality Modality Breast Bilateral Mammography 04/10/2025 2:00 PM EST Narrative 04/10/2025 4:41 PM EST [facility] [address] [place] [address] Mammography Report Signed Patient: Dayana Le MR#: [id number] : 1955 Acct:[id number] Age/Sex: 69 / F ADM Date: 04/10/25 Loc: HO.MAMMO Attending Dr: Christopher Theodore MD Ordering Physician: Christopher Theodore MD Results: 1Negative Date of Service: 04/10/25 Follow Up: 1 Year From Orig inal Mammogram Procedure(s): MM tomosynthesis screening BI Accession Number(s): [id number] cc: Christopher Theodore MD Reason For Exam: [...] by: Lesly Felix DO 04/10/2025 04:38 PM [facility] Dictated By: Lesly Felix DO Signed By: <Electronically signed by Lesly Felix DO in OV> 04/10/25 1638 DD/ 1400 TD/TT: 04/10/25 1442 [employer] Mill Operator: Procedure Note Donotuseinterpreter, Image - 04/10/2025 [facility] [address] [place] [address] Mammography Report Signed Patient: Neetu Le#: [id number] : 6Acct:[id number] Age/Sex: 69 / FADM Date: 04/10/25 Loc: HO.MAMMO Attending Dr: Christopher Theodore MD Ordering Physician: Christopher Theodore MDResults: 1Negative Date of Service: 04/10/25Follow Up: 1 Year From Orig inal Mammogram Procedure(s): MM tomosynthesis screening BI Accession Number(s): [id number] cc: Christopher Theodore MD Reason For Exam: [...] 04/10/25 1638 DD/ 1400 TD/TT: 04/10/25 1442 Buhr Mill Operator: us Christopher Theodore MD IMG BI PROCEDURES Final Result documented in this encounter Visit Diagnoses Not on filedocumented in this encounter Additional Health Concerns Assessment Noted Time PHQ-9 Depression Total Score: 15 024 10:51 AM EDT documented as of this encounter Care Teams Blow Mold Machine Operator Relationship Specialty Start Date End Date Name, MD Christopher [address] [place] [address] PCP - General Family Medicine 11/20/16 documented as of this encounter
--- OUTSIDE RECORDS SUMMARY | 2025-04-10 17:42 | XMS_ITS | Encounter Summary ---
Author Organization [employer] Address [address] [place] [address] Care Team Providers Care Scientific Advisor Name Role Phone Name, Christopher CARRASCO Primary Care Provider [phone] Reason for Visit * Reason Comments Med Refill Encounter Details Date Type Department Care Team ([facility] st Contact Info) Description 08/23/2023 Refill [facility] [address] [place], [place] [phone] Name, MD Christopher [address] [place], [place] [phone] Social History Tobacco Use Types Packs/Day Years [...] Description 2025 11:00 AM EST Office Visit [facility] [address] [place] [phone] Name, MD Christopher [address] [place] [address] documented as of this encounter Visit Diagnoses Not on filedocumented in this encounter Additional Health Concerns Assessment Noted Time PHQ-9 Depression Total Score: 15 024 10:51 AM EDT documented as of this encounter Care Teams Scientific Advisor Relationship Specialty Start Date End Date Name, MD Christopher [address] [place] [phone] PCP - General Family Medicine 11/20/16 documented as of this encounter
== END 2025-04-10 13:54 | disposition home or self-care (01) ==
LOC: HO.MAMMO 13:53
PROVIDERS: PCP Internal Medicine Geriatric Medicine; Visit Provider Internal Medicine Geriatric Medicine
DX: Z12.31 Encounter for screening mammogram for malignant neoplasm of breast (principal)
CPT/HCPCS: 77063; 77067

== ENCOUNTER → 2025-04-10 15:15 | Outpatient (BNV) | payer OTHER, SELFPAY | PROVIDERS: PCP Internal Medicine Geriatric Medicine; Visit Provider Internal Medicine | DX: Z12.31 Encounter for screening mammogram for malignant neoplasm of breast (principal) | CPT/HCPCS: 77063; 77067 ==